=== PATIENT | female | born 1950 | race Hispanic/Latino ===

== ENCOUNTER 2017-10-21 08:59 | Day surgery (SDC) | payer MEDICARE ==
[2017-10-12 13:59] VITALS: BMI 32.5
[2017-10-21] MEDS ORDERED: Propofol 10 mg/ml Inj (20 ML) ONE ×2 (12:32→12:57)
[2017-10-21] MEDS ORDERED: Sodium Chloride 0.9% 1,000 ML IV SCH (14:00)
[2017-10-21 14:51] VITALS: BP 118/71; PULSE 72; RESP 16; TEMP 98; O2SAT 97
== END 2017-10-21 15:45 | disposition home or self-care (01) ==
LOC: ENDO 08:59
PROVIDERS: ATTEND Internal Medicine Gastroenterology
DX: K25.9 Gastric ulcer, unspecified as acute or chronic, without hemorrhage or perforation (principal); K44.9 Diaphragmatic hernia without obstruction or gangrene; K26.9 Duodenal ulcer, unspecified as acute or chronic, without hemorrhage or perforation; K31.7 Polyp of stomach and duodenum; D12.0 Benign neoplasm of cecum; K29.50 Unspecified chronic gastritis without bleeding; K57.30 Diverticulosis of large intestine without perforation or abscess without bleeding; K64.8 Other hemorrhoids; E11.9 Type 2 diabetes mellitus without complications; R13.10 Dysphagia, unspecified; R63.4 Abnormal weight loss; M54.12 Radiculopathy, cervical region; Z87.11 Personal history of peptic ulcer disease

== ENCOUNTER 2018-01-20 09:04 | Day surgery (SDC) | payer MEDICARE ==
[2012-11-16 09:53] VITALS: BMI 37.8
[2018-01-20 09:49] LABS: BASO # 0.01 K/mm3 (0.0-2.0); BASO % 0.1 % (0.0-3.0); EOS % 0.1 % (1.5-5.0); GRAN # 5.23 (1.4-6.5); GRAN % 76.8 % (50.0-68.0); HEMOGLOBIN 13.8 g/dL (12.0-16.0); LYMPH # 1.1 (1.2-3.4); LYMPH % 15.5 % (22.0-35.0); MEAN CELL VOLUME 83.5 fl (80.0-105.0); MEAN CORPUSCULAR HEMOGLOBIN 28.9 pg (25.0-35.0); MEAN CORPUSCULAR HGB CONC 34.6 g/dl (31.0-37.0); MEAN PLATELET VOLUME 9.2 fl (7.0-11.0); MONO # 0.5 (0.1-0.6); MONO % 7.5 % (1.0-6.0); RBC 4.78 10^6/uL (3.5-6.1); RED CELL DISTRIBUTION WIDTH 13.1 % (11.5-14.5); WHITE BLOOD COUNT 6.8 10^3/uL (4.5-11.0)
[2018-01-20 09:58] LABS: INR 1.01; PARTIAL THROMBOPLASTIN TIME 28.7 Seconds (25.1-36.5); PROTHROMBIN TIME 11.6 SECONDS (9.4-12.5)
[2018-01-20 10:00] LABS: ALB/GLOB RATIO 1.5 (1.1-1.8); ALBUMIN 4.2 g/dL (3.0-4.8); ALT/SGPT 39 U/L (7-56); AMYLASE 54 U/L (35-125); AST/SGOT 30 U/L (14-36); BLOOD UREA NITROGEN 20 mg/dL (7-21); CALCIUM 9.4 mg/dL (8.4-10.5); GAMMA GLUTAMYL TRANSPEPTIDASE 13 U/L (8-78); GFR NON-AFRICAN AMERICAN > 60; LIPASE 70 U/L (23-300)
[2018-01-20] MEDS ORDERED: Midazolam 2 MG/2 ML VIAL ONE (12:30)
[2018-01-20] MEDS ORDERED: Propofol 10 mg/ml Inj (20 ML) ONE (12:30)
[2018-01-20] MEDS ORDERED: Etomidate 20 mg/10ml Inj IV ONE (12:31)
[2018-01-20] MEDS ORDERED: Sodium Chloride 0.9% 1,000 ML IV SCH (14:00)
[2018-01-20 14:01] VITALS: RESP 18
[2018-01-20 14:42] VITALS: BP 126/74; PULSE 73; TEMP 98.3; O2SAT 95
== END 2018-01-20 15:35 | disposition home or self-care (01) ==
LOC: ENDO 09:04
PROVIDERS: ATTEND Internal Medicine Gastroenterology
DX: D13.1 Benign neoplasm of stomach (principal); K20.9 Esophagitis, unspecified; E78.00 Pure hypercholesterolemia, unspecified; E11.40 Type 2 diabetes mellitus with diabetic neuropathy, unspecified; K25.9 Gastric ulcer, unspecified as acute or chronic, without hemorrhage or perforation; K26.9 Duodenal ulcer, unspecified as acute or chronic, without hemorrhage or perforation; R63.4 Abnormal weight loss; Z86.010 Personal history of colon polyps; Z90.710 Acquired absence of both cervix and uterus; Z85.3 Personal history of malignant neoplasm of breast; Z92.3 Personal history of irradiation
CPT/HCPCS: 36415; 43239; 43259; 80053; 82150; 82977; 83690; 85025; 85610; 85730; 88305; 88312; 88342; J2001; J2250; J2704; J3010; J7030; J7040

== ENCOUNTER 2018-03-30 14:59 | Inpatient (IN) | payer MEDICARE ==
[2018-03-30 15:38] VITALS: BMI 28.1
[2018-03-30 16:04] LABS: BASO # 0.02 K/mm3 (0.0-2.0); BASO % 0.2 % (0.0-3.0); EOS % 0.4 % (1.5-5.0); GRAN # 6.21 (1.4-6.5); GRAN % 77.1 % (50.0-68.0); HEMOGLOBIN 13.9 g/dL (12.0-16.0); LYMPH # 1.4 (1.2-3.4); LYMPH % 16.7 % (22.0-35.0); MEAN CELL VOLUME 84.5 fl (80.0-105.0); MEAN CORPUSCULAR HEMOGLOBIN 28.4 pg (25.0-35.0); MEAN CORPUSCULAR HGB CONC 33.7 g/dl (31.0-37.0); MEAN PLATELET VOLUME 9.9 fl (7.0-11.0); MONO # 0.5 (0.1-0.6); MONO % 5.6 % (1.0-6.0); RBC 4.89 10^6/uL (3.5-6.1); RED CELL DISTRIBUTION WIDTH 13.5 % (11.5-14.5); WHITE BLOOD COUNT 8.1 10^3/uL (4.5-11.0)
--- NOTE | 2018-03-30 16:06 | ED PDOC ---
Arrival/HPI - General Chief Complaint: Shortness Of Breath Time Seen by Provider: 03/30/18 15:01 Historian: Patient - History of Present Illness Narrative History of Present Illness (Text): 03/30/18 15:45 67 F with PMHx of DM2, ?CIDP, spinal stenosis, spinal HNP sent to the Emergency department by PMD with cc of shortness of breath on exertion and weakness all over. Pt reports she went to see her PMD today, who wanted her to come into the Emergency department. Patient notes tightness of chest, ribs and around the back area. Patient states her weakness is so bad that she has trouble functioning. Pt states she saw her neurologist, who thinks it may be something more than CIPD. Pt denies any other complaints. PMD: Dr. Cortez Neurologist: Raymundo Youssef 03/30/18 16:10 Time/Duration: Prior to Arrival Symptom Onset: Sudden Symptom Course: Unchanged Activities at Onset: Light Past Medical History - Cardiac Hx Cardiac Disorders: No - Pulmonary Hx Respiratory Disorders: No - Neurological Hx Neurological Disorder: Yes (NEUROPATHY) Other/Comment: CHRONIC INFLAMMATORY DEMYELINATING POLYNEUROPATHY (CIDP) - HEENT Hx HEENT Disorder: No - Renal Hx Renal Disorder: No - Endocrine/Metabolic Hx Diabetes Mellitus Type 2: Yes - Hematological/Oncological Hx Cancer: Yes (RIGHT BREAST LUMPECTOMY, RADIATION) - Integumentary Hx Dermatological Disorder: No - Musculoskeletal/Rheumatological Hx Musculoskeletal Disorders: Yes (CARPAL TUNNEL) Other/Comment: BILATER TORN SHOULDER ROTATOR CUFFS, WITH SURGERY, AND RETORN. 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 - Gastrointestinal Hx Gastrointestinal Disorders: No - Genitourinary/Gynecological Hx Genitourinary Disorders: Yes Other/Comment: HYSTERCTOMY AND BILATERAL OOPHARECTOMY - Psychiatric Hx Psychophysiologic Disorder: No Hx Substance Use: No - Surgical History Hx Hysterectomy: Yes Hx Orthopedic Surgery: Yes Other/Comment: RIGHT BREAST LUMPECTOMY - Anesthesia Hx Anesthesia: Yes Hx Anesthesia Reactions: Yes (REINTUBATED) Hx Malignant Hyperthermia: No - Suicidal Assessment Feels Threatened In Home Enviroment: No Family/Social History Family/Social History: Unknown Family HX Smoking Status: Unknown If Ever Smoked Hx Alcohol Use: No Hx Substance Use: No Allergies/Home Meds Allergies/Adverse Reactions: Allergies No Known Allergies Allergy (Verified 03/30/18 15:38) Home Medications: Home Meds Medication Instructions Recorded Confirmed Aspirin [Aspir 81] 81 mg PO DAILY 11/16/12 03/07/18 Cholecalciferol [Vitamin D] 2,000 iu PO DAILY 11/16/12 03/07/18 MetFORMIN [glucoPHAGE] 1,000 mg PO DAILY 10/12/17 03/07/18 Pitavastatin Calcium [Livalo] 1 mg PO DAILY 10/12/17 03/07/18 Zonisamide [Zonegran] 300 mg PO HS 10/12/17 03/07/18 Omeprazole 40 mg PO DAILY 10/21/17 03/07/18 SITagliptin [Januvia] 100 mg PO DAILY 01/18/18 03/07/18 Zonisamide [Zonegran] 200 mg PO QAM 01/18/18 03/07/18 Levomefolate/B6/B12/Algal Oil 1 tab PO BID 01/20/18 03/07/18 [Metanx Capsule] Review of Systems - Physician Review All systems were reviewed & negative as marked: Yes (All other systems negative except that noted in the HPI.) Physical Exam - Physical Exam Narrative Physical Exam (Text): 03/30/18 16:10 Gen: VS reviewed, alert, well developed, well nourished, nontoxic, mild distress Eye: EOMI, PERRL Neck: no JVD, supple, no adenopathy CV: regular rate, regular rhythm, no rubs,no murmur, S1, S2 Pulm: no distress, clear to auscultation, no wheeze, no rhonchi, breath sounds equal, no rales Abd: soft, nontender, no guarding, no rebound, no rigidity Ext: no edema, there is atrophy noted of the left hand Skin: good color, no rash, no cyanosis Psych: responds appropriately to questions, normal affect Neuro: oriented x3, CN2-12 intact grossly, motor intact, sensation intact Medical Decision Making ED Course and Treatment: 03/30/18 15:45 Impression: 67 F sent to the Emergency department by PMD for shortness of breath on exertion and generalized weakness. Differential Diagnosis included but are not limited to: Plan: -- CT of angio chest -- EKG -- Labs -- Myoglobin, Urine -- Reassess and disposition Progress Notes: 03/30/18 18:[address] shafer. patient was sent to the Emergency department after being seen by dr. cortez for chest pain with request for admission. patient has diminished mobility and CTAPE was done to rule out PE. patient has been dealing with progressive generalized weakness, being seen by a neurologist dr. henry, was dx with CIDP, was noticed to not show improvement with therapy and was referred to surgeon for muscle biopsy. patient remained stable throughout Emergency department course, admit to remote tele and consult to dr. king. - RAD Interpretation Narrative RAD Interpretations (Text): CT of angio chest reviewed by radiologist, shows: Dictator : Dick Maurer MD Report Date : 03/30/2018 17:23:47 FINDINGS: PULMONARY ARTERIES: Dilated main pulmonary artery consistent with pulmonary arterial hypertension. AORTA: No acute findings. No thoracic aortic aneurysm. No atherosclerotic calcification or mural plaque present. LUNGS: Lower lobe infiltrates/dependent atelectasis affecting the left lower lobe to a greater extent in the right lower lobe. PLEURAL SPACES: Unremarkable. No effusion or pneumothorax. HEART: Unremarkable. No cardiomegaly. No significant pericardial effusion. LYMPH NODES: No lymphadenopathy. BONES, CHEST WALL: Unremarkable. No fracture or destructive lesion OTHER FINDINGS: Areas of esophageal thickening proximally and distally without annular or constricting lesion identified. IMPRESSION: Negative study for pulmonary embolism. Evidence of pulmonary arterial hypertension. Lower lobe infiltrates/atelectasis left greater than right. Focal areas of thickening proximal and distal esophagus suggestive, but not diagnostic of esophagitis. Radiology Orders: 03/30/18 15:50 ANGIO CHEST PE PROTOCOL [CT] Stat Ship Washer: Radiologist - EKG Interpretation EKG Interpretation (Text): 03/30/18 20:01 1536: nsr at 86 bpm, nml qrs, nml axis, inferior infarct, nonspecifct wave abn Interpreted by ED Physician: Yes - Scribe Statement The provider has reviewed the documentation as recorded by the Scribe Carolyn Santa All medical record entries made by the Scribe were at my direction and pe rsonally dictated by me. I have reviewed the chart and agree that the record accurately reflects my personal performance of the history, physical exam, medical decision making, and the department course for this patient. I have also personally directed, reviewed, and agree with the discharge instructions and disposition. Disposition/Present on Arrival - Present on Arrival Any Indicators Present on Arrival: No History of DVT/PE: No History of Uncontrolled Diabetes: No Urinary Catheter: No History of Decub. Ulcer: No History Surgical Site Infection Following: None - Disposition Have Diagnosis and Disposition been Completed?: Yes Diagnosis: Chest pain, Weakness Disposition: HOSPITALIZED Disposition Time: 18:38 Patient Plan: Admission Patient Problems: Current Active Problems Problem Status Onset Chest pain Acute Weakness Acute Condition: STABLE
[2018-03-30 16:14] LABS: PARTIAL THROMBOPLASTIN TIME 28.2 Seconds (25.1-36.5); PROTHROMBIN TIME 11.4 SECONDS (9.4-12.5)
[2018-03-30 16:18] LABS: ALB/GLOB RATIO 1.4 (1.1-1.8); ALBUMIN 4.2 g/dL (3.0-4.8); ALT/SGPT 44 U/L (7-56); AST/SGOT 35 U/L (14-36); BLOOD UREA NITROGEN 24 mg/dL (7-21); CALCIUM 9.4 mg/dL (8.4-10.5); GFR NON-AFRICAN AMERICAN > 60
[2018-03-30 16:27] LABS: B-TYPE NATRIURETIC PEPTIDE 261 pg/mL (0-450); TROPONIN I < 0.01 ng/mL
[2018-03-30] MEDS ORDERED: Iodixanol 320 MG/ML 100 ML BOTTLE IV ONE (16:36)
[2018-03-30 17:05] LABS: CK MB% 11.3 % (2.5-3.0)
--- NOTE | 2018-03-30 17:27 | CT ---
Date of service: 03/30/2018 PROCEDURE: CT Chest with contrast (Pulmonary Angiogram) HISTORY: Shortness of breath, pulmonary embolism suspected COMPARISON: 11/14/2017 CT thorax abdomen and pelvis TECHNIQUE: Axial computed tomography images were obtained of the chest in the pulmonary arterial phase of enhancement. Coronal and sagittal reformatted images were created and reviewed. Intravenous contrast dose: 100 cc Visipaque 320 Mean Hounsfield value in the main pulmonary artery: 236.66 Radiation dose: Total exam DLP = 436.95 mGy-cm. This CT exam was performed using one or more of the following dose reduction techniques: Automated exposure control, adjustment of the mA and/or kV according to patient size, and/or use of iterative reconstruction technique. FINDINGS: PULMONARY ARTERIES: Dilated main pulmonary artery consistent with pulmonary arterial hypertension. AORTA: No acute findings. No thoracic aortic aneurysm. No atherosclerotic calcification or mural plaque present. LUNGS: Lower lobe infiltrates/dependent atelectasis affecting the left lower lobe to a greater extent in the right lower lobe. PLEURAL SPACES: Unremarkable. No effusion or pneumothorax. HEART: Unremarkable. No cardiomegaly. No significant pericardial effusion. LYMPH NODES: No lymphadenopathy. BONES, CHEST WALL: Unremarkable. No fracture or destructive lesion OTHER FINDINGS: Areas of esophageal thickening proximally and distally without annular or constricting lesion identified. IMPRESSION: Negative study for pulmonary embolism. Evidence of pulmonary arterial hypertension. Lower lobe infiltrates/atelectasis left greater than right. Focal areas of thickening proximal and distal esophagus suggestive, but not diagnostic of esophagitis.
[2018-03-30] MEDS: Insulin Reg-LOW-Coverage SC SCH (22:38)
--- NOTE | 2018-03-31 09:55 | CARD ---
APPROVED REPORT Date of service: 03/30/2018 EKG Measurement Heart [id number] <Conclusion> Normal sinus rhythm Anterolateral infarct, age undetermined Abnormal ECG
--- NOTE | 2018-03-31 10:46 | CP.PCM.CON ---
History of Present Illness - History of Present Illness History of Present Illness: Marty Latham, PGY1 Surgery Consult Note for Dr. Beckwith Patient is a 67 y/o F with PMHx of DM II, HLD, spinal stenosis with multiple herniated discs, Breast cancer (with R-lumpectomy) who [place] [facility] [place] and generalized weakness. Patient has been seeing her neurologist for several years for her neurological complaints and was told that she may have Chronic Inflammatory Demyelinating Polyneuropathy, or CIDP. Patient has been receiving IV infusions of IVIG for the past month as per neurologist (Dr. Philippe). Surgery was consulted for muscle biopsy. Patient was seen and examined at bedside this morning. She is AAOx3. She states that her weakness has been going on for x1 year and has worsened in the last 3 months, with associated shortness of breath in the last 3 weeks. She endorsed 60 lb weight loss within the past year; this was confirmed by family members present at bedside. Patient has trouble sitting down in a chair and reaching for objects. She also has occasional numbness and tingling of the extremities. Denies fever, chills, nausea, vomiting, abdominal pain, cp. PMHx: DM II, HLD, spinal stenosis with multiple herniated discs, Breast cancer (with R-lumpectomy) PSHx: rotator cuff surgery (12 years ago), Hysterectomy w/ oophorectomy, bilateral carpal tunnel surgery (12 years ago), R-breast lumpectomy, cervical and lumbar herniated discs x10 Meds: see MAY Allergies: NKDA FamHx: non-contributory Review of Systems - Review of Systems All systems: reviewed and no additional remarkable complaints except (as per HPI) Past Patient History - Past Social History Smoking Status: Former Smoker - CARDIAC Hx Cardiac Disorders: No - PULMONARY Hx Respiratory Disorders: Yes Hx Chronic Obstructive Pulmonary Disease (COPD): Yes - NEUROLOGICAL Hx Neurological Disorder: No - HEENT Hx HEENT Problems: No - RENAL Hx Chronic Kidney Disease: No - ENDOCRINE/METABOLIC Hx Endocrine Disorders: Yes Hx Diabetes Mellitus Type 1: Yes - HEMATOLOGICAL/ONCOLOGICAL Hx Blood Disorders: Yes Hx Cancer: Yes (Rt breast Cancer) - INTEGUMENTARY Hx Dermatological Problems: No - MUSCULOSKELETAL/RHEUMATOLOGICAL Hx Musculoskeletal Disorders: Yes Hx Falls: Yes - GASTROINTESTINAL Hx Gastrointestinal Disorders: No - GENITOURINARY/GYNECOLOGICAL Hx Genitourinary Disorders: No - PSYCHIATRIC Hx Psychophysiologic Disorder: No - SURGICAL HISTORY Hx Surgeries: Yes Hx Hysterectomy: Yes Other/Comment: lumpectomy - ANESTHESIA Hx Anesthesia: Yes Hx Anesthesia Reactions: Yes (REINTUBATED) Hx Malignant Hyperthermia: No Meds Allergies/Adverse Reactions: Allergies Allergy/AdvReac Type Severity Reaction Status Date / Time No Known Allergies Allergy Verified 03/30/18 15:38 - Medications Medications: Current Medications Aspirin (Ecotrin) 81 mg PO DAILY [facility] Atorvastatin Calcium (Lipitor) 40 mg PO DIN MAR Insulin Human Regular (Humulin R Low) 0 units SC ACHS [facility]; Protocol Last Admin: 03/30/18 22:38 Dose: Not Given Sitagliptin Phosphate (Januvia) 100 mg PO DAILY [facility] Physical Exam - Head Exam Head Exam: NORMAL INSPECTION - Eye Exam Eye Exam: EOMI, Normal appearance, PERRL - ENT Exam ENT Exam: Mucous Membranes Moist - Respiratory Exam Respiratory Exam: Clear to Auscultation Bilateral. absent: Rales, Rhonchi, Wheezes - Cardiovascular Exam Cardiovascular Exam: RRR, +S1, +S2 - GI/Abdominal Exam GI & Abdominal Exam: Normal Bowel Sounds, Soft. absent: Distended, Firm, Guarding, Rebound, Rigid - Extremities Exam Extremities exam: Positive for: pedal pulses present. Negative for: calf tenderness, full ROM Additional comments: Proximal muscle weakness of the upper and lower extremities. LUE weakness is greater than RUE. Sensation is intact in all extremities. Distal pulses are palpable in all extremities. Limited ROM in the extremities. No abnormal skin changes noted on exam. - Neurological Exam Neurological exam: Alert, CN II-XII Intact, Oriented x3 - Psychiatric Exam Psychiatric exam: Normal Affect, Normal Mood - Skin Skin Exam: Dry, Intact, Normal Color, Warm Results - Vital Signs Recent Vital Signs: Last Vital Signs Temp 97.5 F L 03/31/18 06:00 Pulse 74 03/31/18 06:00 Resp 18 03/31/18 06:00 BP 124/80 03/31/18 06:00 Pulse Ox 99 03/31/18 06:00 - Labs Result Diagrams: 03/30/18 15:50 03/30/18 15:50 Labs: Laboratory Results - last 24 hr 03/30/18 03/30/18 03/30/18 15:50 15:50 15:50 WBC 8.1 RBC 4.89 Hgb 13.9 Hct 41.3 MCV 84.5 MCH 28.4 MCHC 33.7 RDW 13.5 Plt Count 249 MPV 9.9 Gran % 77.1 H Lymph % (Auto) 16.7 L Wells % (Auto) 5.6 Eos % (Auto) 0.4 L Baso % (Auto) 0.2 Gran # 6.21 Lymph # (Auto) 1.4 Wells # (Auto) 0.5 Eos # (Auto) 0.0 Baso # (Auto) 0.02 PT 11.4 INR 1.00 APTT 28.2 Sodium 138 Potassium 4.2 Chloride 105 Carbon Dioxide 27 Anion Gap 10 BUN 24 H Creatinine 0.7 Est GFR ( Amer) > 60 Est GFR (Non-Af Amer) > 60 POC Glucose (mg/dL) Random Glucose 118 H Calcium 9.4 Magnesium 1.6 L Total Bilirubin 0.3 AST 35 ALT 44 Alkaline Phosphatase 82 Total Creatine Kinase 231 H CK-MB (CK-2) 26.0 H CK-MB (CK-2) % 11.3 H Troponin I < 0.01 NT-Pro-B Natriuret Pep 261 Total Protein 7.2 Albumin 4.2 Globulin 3.0 Albumin/Globulin Ratio 1.4 Lipase TSH 3rd Generation 03/30/18 03/30/18 03/30/18 15:50 16:30 22:01 WBC RBC Hgb Hct MCV MCH MCHC RDW Plt Count MPV Gran % Lymph % (Auto) Wells % (Auto) Eos % (Auto) Baso % (Auto) Gran # Lymph # (Auto) Wells # (Auto) Eos # (Auto) Baso # (Auto) PT INR APTT Sodium Potassium Chloride Carbon Dioxide Anion Gap BUN Creatinine Est GFR ( Amer) Est GFR (Non-Af Amer) POC Glucose (mg/dL) 163 H Random Glucose Calcium Magnesium Total Bilirubin AST ALT Alkaline Phosphatase Total Creatine Kinase CK-MB (CK-2) CK-MB (CK-2) % Troponin I NT-Pro-B Natriuret Pep Total Protein Albumin Globulin Albumin/Globulin Ratio Lipase 76 TSH 3rd Generation 1.69 03/31/18 03/31/18 06:00 07:33 WBC RBC Hgb Hct MCV MCH MCHC RDW Plt Count MPV Gran % Lymph % (Auto) Wells % (Auto) Eos % (Auto) Baso % (Auto) Gran # Lymph # (Auto) Wells # (Auto) Eos # (Auto) Baso # (Auto) PT INR APTT Sodium Potassium Chloride Carbon Dioxide Anion Gap BUN Creatinine Est GFR ( Amer) Est GFR (Non-Af Amer) POC Glucose (mg/dL) 135 H Random Glucose Calcium Magnesium Total Bilirubin AST ALT Alkaline Phosphatase Total Creatine Kinase CK-MB (CK-2) CK-MB (CK-2) % Troponin I < 0.01 NT-Pro-B Natriuret Pep Total Protein Albumin Globulin Albumin/Globulin Ratio Lipase TSH 3rd Generation Assessment & Plan - Assessment and Plan (Free Text) Assessment: Patient is a 67 y/o F with possible Chronic Inflammatory Demyelinating Polyneuropathy requiring muscle biopsy Plan: - Will schedule for muscle biopsy on Tuesday, 04/03, with Dr. Davis - No surgical intervention at this time - Continue with further recommendations as per primary team Case was discussed and reviewed with Dr. Beckwith, who is covering for Dr. Davis
[2018-03-31] MEDS: Insulin Reg-LOW-Coverage SC SCH ×3 (11:10→23:23)
[2018-03-31 12:02] LABS: COMPLEMENT C4 36.4 mg/dL (14.0-44.0)
--- NOTE | 2018-03-31 12:09 | HP ---
DATE OF EXAM: 03/31/2018 HISTORY OF PRESENT ILLNESS: This is a 67-year-old female who is coming into the hospital complaining of chest discomfort. She says that she has been having chest pain at times right below where her bra straps are. She says that she does get shortness of breath. She feels weak and has difficulty in ambulating. She has a history of spinal stenosis and neuropathy in the legs bilaterally. The patent has been seeing a neurologist. She was started on IVIG and she says it has not helped. She has a diagnosis of chronic inflammatory demyelinating polyneuropathy. The patient denies any fevers, chills, no nausea, no vomiting, no swelling in the joints of the shoulders or the hands. She has no rashes. She has difficulty in lifting her arms above her shoulders. She has seen multiple hand surgeons because she has difficulty with holding onto objects because of her carpal tunnel. She has had rotator cuff surgery. The patient has dysuria, frequency. No diplopia. All other review of systems are within limits except as mentioned, she was not able to do go upstairs, although she was able to go down the stairs. She says she was perfectly healthy one year ago and since then has declined significantly. ALLERGIES: No known drug allergies. PAST MEDICAL HISTORY: Diabetes type 2, right breast cancer, chronic inflammatory demyelinating polyneuropathy, and dyslipidemia. FAMILY HISTORY: Noncontributory. SOCIAL HISTORY: She says she stopped smoking about 12 years ago. She denies alcohol abuse or drugs. PAST SURGICAL HISTORY: 1. Hysterectomy and bilateral oophorectomy. 2. Right breast lumpectomy. 3. Bilateral rotator cuff surgeries. MEDICATIONS: Aspirin, vitamin D, Glucophage, pitavastatin, Zonegran, omeprazole, Januvia. LABORATORY DATA: White count 8.1, hemoglobin 13.9. Chemistry shows sodium 138, potassium is 4.2, creatinine is 0.7, magnesium is 1.6, CK is 231, troponin is 0.01, albumin is 4.2. CT of the chest done is negative for PE. There is left lower lobe atelectasis. ASSESSMENT: 1. Chest pain. 2. Diabetes type 2. 3. Dyslipidemia. 4. Chronic inflammatory demyelinating polyneuropathy. 5. Gait dysfunction. 6. Chronic back pain. PLAN: The patient is currently admitted to the hospital because of chest pain. She had troponins that were negative. She will need to see Cardiology. I did speak with Dr Camacho. The patient is currently comfortable and does not have any chest pain. The patient will most likely need a stress test because of history of diabetes and smoking. The patient also complains of shortness of breath. The patient had urine myoglobin that has been ordered as well as DONA. She also is going to continue with Januvia. I will place her on insulin sliding scale. She will be placed on Lipitor because her statin is not formulated in the hospital. I will get Neuro and Surgery to evaluate the patient. Dr Philippe is the patient's neurologist and he had referred the patient to Dr Davis for muscle biopsy. The patient has a history of chronic inflammatory demyelinating polyneuropathy. This is an acquired immune mediated inflammatory disorder of the peripheral nervous system. She has had two treatments of IVIG and this has not helped her symptoms. I am not sure if she would benefit from prednisone or plasmapheresis. I will get Neurology to evaluate further. The patient will most likely need an echo. I did speak to the patient's daughter at the bedside. The patient will most likely need subacute rehab. She is going to be placed on a heart healthy diet. Khurram Sharma MD
--- NOTE | 2018-03-31 15:31 | CARD ---
APPROVED REPORT Date of service: 03/31/2018 EXAM: Two-dimensional and M-mode echocardiogram with Doppler and color Doppler. INDICATION Chest Pain 2D DIMENSIONS Left Atrium (2D)3.8 (1.6-4.0cm)IVSd1.2 (0.7-1.1cm) LVDd4.2 (3.9-5.9cm)PWd1.1 (0.7-1.1cm) LVDs2.8 (2.5-4.0cm)FS (%) 33.0 % LVEF (%)61.9 (>50%) M-Mode DIMENSIONS Aortic Root2.90 (2.2-3.7cm)Aortic Cusp Exc.1.60 (1.5-2.0cm) Aortic Valve AoV Peak Vizeaqzl032.0cm/Giovany Peak GR.7mmHg Mitral Valve MV E Trnborew49.0cm/sMV A Yrtuecli55.8cm/sE/A ratio0.8 TDI E/Lateral E'0.0E/Medial E'0.0 Tricuspid Valve TR Peak Yiaccnag698is/sRAP [id number] Peak Gr.8mmHg [id number] LEFT VENTRICLE The left ventricle is normal size. There is mild concentric left ventricular hypertrophy. The left ventricular function is normal. The left ventricular ejection fraction is within the normal range. There is normal LV segmental wall motion. RIGHT VENTRICLE The right ventricle is normal size. The right ventricular systolic function is normal. ATRIA The left atrium size is normal. The right atrium size is normal. The interatrial septum is intact with no evidence for an atrial septal defect. AORTIC VALVE The aortic valve is normal in structure. No aortic regurgitation is present. There is no aortic valvular stenosis. MITRAL VALVE The mitral valve is normal in structure. There is no mitral valve regurgitation noted. TRICUSPID VALVE The tricuspid valve is normal in structure. There is trace tricuspid regurgitation. PULMONIC VALVE The pulmonary valve is normal in structure. GREAT VESSELS The aortic root is normal in size. The IVC is normal in size and collapses >50% with inspiration. PERICARDIAL EFFUSION There is no pleural effusion. There is no pericardial effusion. <Conclusion> Normal chamber size. Mild concentric LVH. No valvular abnormalities seen. Normal LV systolic function.
--- NOTE | 2018-03-31 16:17 | CON ---
DATE: 03/30/2018 HISTORY OF PRESENT ILLNESS: This is a 67-year-old white female with a past medical history of diabetes, CIDP, dyslipidemia, and right breast cancer and has been came to the hospital with the complain of chest discomfort, also complain of difficulty breathing and feels very weak, difficulty in ambulating, walking with a walker. The patient was given two rounds of IVIG by Dr. Philippe, and still complaining very weak, also had bilateral carpal tunnel syndrome and neuropathy and difficulty in doing daily activities of living and son is at bedside, called to evaluate the patient. PAST MEDICAL HISTORY: Diabetes, CIDP, and dyslipidemia. ALLERGIES: NO KNOWN DRUG ALLERGIES. SOCIAL HISTORY: Stopped smoking 12 years ago. PAST SURGICAL HISTORY: Status post hysterectomy, oophorectomy, right breast lumpectomy and bilateral rotator cuff surgeries. MEDICATIONS: Aspirin, vitamin D, Glucophage, and Zonegran for neuropathy. PHYSICAL EXAMINATION HEENT: Normocephalic and atraumatic. NECK: Supple. NEUROLOGIC: Awake, oriented to self and place. Cranial nerves II through XII are tested. Pupil reactive. EOM intact. Visual field full. No facial asymmetry. Tongue midline. Motor: Spontaneous movement of all the extremities noted, but weaker in the legs more than the arms. Deep tendon reflexes are absent. Cerebellar gait was deferred. IMPRESSION: A 67-year-old white female with a past medical history of chronic inflammatory demyelinating polyneuropathy and diabetes and right breast cancer and came to hospital with the chest pain, difficulty breathing and multiple medical problems like diabetes, colonic inflammatory demyelinating polyneuropathy, gait dysfunction, chronic back pain and workup is in progress and I agree with muscle biopsy, Dr. Davis will do to make sure for the history of chronic inflammatory demyelinating polyneuropathy. Continue present management and physical therapy. We will followup. Isaiah Astudillo MD
--- NOTE | 2018-04-01 03:01 | CON ---
DATE: 03/31/2018 REQUESTING PHYSICIAN: Dr. Sharma. REASON FOR CONSULTATION: Chest pain and dyspnea. HISTORY OF PRESENT ILLNESS: This is a 67-year-old woman with a history of diabetes and hyperlipidemia who has had progressive weakness over the past year or so. She has been seen by Dr. Philippe and was suspected of having a chronic inflammatory demyelinating polyneuropathy. Recently, she has had worsening exertional dyspnea as well as a band-like sensation across her chest. She has been treated with intravenous immunoglobulin without significant improvement in her symptoms. She had worsening symptoms and presents to the emergency room for evaluation. She is seen sitting in a chair on telemetry. She finds it difficult to talk in long sentences as she becomes dyspneic. PAST HISTORY: Notable for the problems mentioned above. She also has undergone a right lumpectomy for breast cancer a number of years ago. She is status post hysterectomy as well as left oophorectomy and has undergone bilateral rotator cuff surgeries as well as carpal tunnel surgery. MEDICATIONS: Her medications at home include aspirin, Glucophage, Zonegran, Lipitor, Neurontin. ALLERGIES: NONE. SOCIAL HISTORY: She was a smoker, but quit over 10 years ago. She denies alcohol use. She is , lives with her family. FAMILY HISTORY: Unremarkable for premature heart disease. REVIEW OF SYSTEMS: A 10-point review of systems is notable mainly for problems mentioned above. PHYSICAL EXAMINATION: GENERAL: She is an anxious-appearing middle-aged woman. VITAL SIGNS: Her blood pressure was 124/80 with a pulse of 90, in sinus; respirations are 16; and she is afebrile. HEENT: Normocephalic, atraumatic. NECK: Supple, however, she appears to have some neck muscle weakness. CHEST: Clear to auscultation and percussion. HEART: PMI in normal position. No pathologic murmurs or gallops are noted. ABDOMEN: Soft, mildly obese, nontender. Normoactive bowel sounds. EXTREMITIES: No edema. SKIN: Warm and dry. PSYCHIATRIC: Mild anxiety, but otherwise normal mood and affect. NEUROLOGIC: Significant lower extremity weakness is noted. IMPRESSION: 1. Dyspnea, doubt cardiac cause, suspicious for possible diaphragmatic weakness associated with her generalized motor weakness. 2. Chest discomfort, also appears more likely neurologic rather than cardiac in nature. 3. Significant cardiac risk factors given history of diabetes, hyperlipidemia, and remote tobacco abuse. 4. Rest of problems as noted. RECOMMENDATIONS: Continued neurologic workup is advisable. A muscle biopsy may be helpful. An echocardiogram will be obtained to assess her left ventricular size and function. She states she had a stress test several years ago. Given her risk factors, it would not be unreasonable to repeat a pharmacologic nuclear stress test, however, her symptoms do not appear to be cardiac in nature at this time. We will continue to follow and make further recommendations as appropriate. Thank you for this consultation. Alexis Camacho MD
[2018-04-01] MEDS: Insulin Reg-LOW-Coverage SC SCH ×4 (07:30→22:15)
--- NOTE | 2018-04-01 08:53 | CP.PCM.PN ---
Subjective - Date & Time of Evaluation Date of Evaluation: 04/01/18 Time of Evaluation: 08:49 - Subjective Subjective: Surgery Progress note for Dr. Beckwith (covering for Dr. Ortega) pt seen and examined at bedside. No new complaints at this time. tolerating current diet. + OOB and ambulating. Denies fevers, chills, chest pain, shortness of breath. Objective - Vital Signs/Intake and Output Vital Signs (last 24 hours): Temp Pulse Resp BP Pulse Ox 98.5 F 119 H 19 129/86 99 03/31/18 18:00 04/01/18 05:22 03/31/18 18:00 03/31/18 18:00 03/31/18 06:00 Intake and Output: 04/01/18 04/01/18 06:59 18:59 Intake Total 480 Balance 480 - Medications Medications: Current Medications Aspirin (Ecotrin) 81 mg PO DAILY [facility] Last Admin: 03/31/18 11:10 Dose: 81 mg Atorvastatin Calcium (Lipitor) 40 mg PO DIN [facility] Last Admin: 03/31/18 17:56 Dose: 40 mg Gabapentin (Neurontin) 300 mg PO BID [facility]; Protocol Last Admin: 03/31/18 17:56 Dose: 300 mg Insulin Human Regular (Humulin R Low) 0 units SC ACHS [facility]; Protocol Last Admin: 03/31/18 23:23 Dose: Not Given Sitagliptin Phosphate (Januvia) 100 mg PO DAILY [facility] Last Admin: 03/31/18 11:10 Dose: 100 mg - Labs Labs: 03/30/18 15:50 03/30/18 15:50 PT 11.4 SECONDS (9.4-12.5) 03/30/18 15:50 INR 1.00 03/30/18 15:50 APTT 28.2 Seconds (25.1-36.5) 03/30/18 15:50 - Constitutional Appears: Non-toxic, No Acute Distress - Head Exam Head Exam: ATRAUMATIC - Eye Exam Eye Exam: EOMI. absent: Scleral icterus - ENT Exam ENT Exam: Mucous Membranes Moist - Respiratory Exam Respiratory Exam: absent: Accessory Muscle Use, Respiratory Distress - Cardiovascular Exam Cardiovascular Exam: REGULAR RHYTHM. absent: Bradycardia, Tachycardia - GI/Abdominal Exam GI & Abdominal Exam: Soft. absent: Distended, Firm, Guarding, Rigid, Tenderness - Extremities Exam Additional comments: continues to have weakness in upper and lower extremities - Neurological Exam Neurological Exam: Alert, Awake, Oriented x3 - Psychiatric Exam Psychiatric exam: Normal Affect - Skin Skin Exam: Intact, Warm Assessment and Plan - Assessment and Plan (Free Text) Assessment: 67F w/ extensive pmhx admitted for muscle biopsy to r/o CIPD Plan: - plan for biopsy on tuesday - NPO after MN on Tuesday - Encourage OOB and ambulation - continued medical management per primary team - further recs per Dr. Tang Villa PGY2
--- NOTE | 2018-04-01 18:24 | PN ---
DATE: 04/01/2018 SUBJECTIVE: The patient is seen sitting in a chair on telemetry. She continues to have generalized muscle weakness. She continues to have some dyspnea which appears associated with increased work of respiratory movement excursion. She denies any chest pain. She has had intermittent sinus tachycardia with exertion. MEDICATIONS: Her current medications include Ecotrin, insulin, Januvia, Lipitor and Neurontin. OBJECTIVE GENERAL: She is a middle-aged woman who appears anxious. VITAL SIGNS: Her blood pressure is 130/86 with a pulse of 80-120 and sinus, respirations are 16. She is afebrile. HEENT: No JVD. CHEST: Few scattered rhonchi. HEART: PMI in normal position. No pathological murmurs or gallops noted. ABDOMEN: Soft and nontender. Normoactive bowel sounds. EXTREMITIES: No edema. DIAGNOSTIC DATA: Her echocardiogram reveals mild concentric LVH with normal LV size and systolic function, no significant valvular abnormalities. IMPRESSION: 1. Dyspnea. Suspect this is due to respiratory muscle weakness associated with generalized muscle weakness. Doubt cardiac cause. 2. History of diabetes. RECOMMENDATIONS: From a cardiac standpoint, she is stable to proceed with a muscle biopsy as scheduled for Tuesday. At this time, cardiac stress testing will be deferred as her symptoms are not likely ischemic in nature and I do not feel that stress testing is appropriate at this time. She can be reevaluated for this at a later date. We will follow as needed. Alexis Camacho MD
--- NOTE | 2018-04-01 23:09 | PN ---
DATE: 04/01/2018 SUBJECTIVE: The patient is 67 years old who is under the care of Dr. Philippe. States she went to see Dr. Philippe. She states she was recently started on IVIG infusion when she mentioned to Dr. Philippe that recently she has been having pressure like chest pain, though he referred her to see Dr. Cortez who seems to be primary care physician. He did EKG in the office and found some changes, so he referred her to emergency room for evaluation of coronary artery disease. The patient was evaluated by Dr. Alexis Camacho. Echocardiogram was ordered that shows normal LV function, mild concentric LVH, but systolic function is within normal limits. The patient was also evaluated by the neurologist. 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 There was no plan for stress test; however, she is going for muscle biopsy on Tuesday. PHYSICAL EXAMINATION: GENERAL: Complaint of extreme weakness, shortness of breath. She cannot catch her breath if she walks to the bathroom. VITAL SIGNS: She is afebrile, pulse 88, respirations 20, and blood pressure 116/73. LUNGS: Bilateral fair airflow. No rhonchi or crackle. HEART: S1 and S2 audible. ABDOMEN: Soft, nontender. No rebound. No guarding. NEUROLOGICAL: The patient is awake, alert, oriented. Able to communicate, but has extreme weakness, bilateral upper and lower extremity decreased strength. LABORATORY DATA: Blood sugar is running high. DONA screen is negative. Complement level is okay, is in normal range. ASSESSMENT: 1. History of chronic inflammatory demyelinating disease. 2. Generalized weakness. 3. Noncardiac chest pain. 4. History of carcinoma of breast. 5. Non-insulin dependent diabetes. PLAN: The patient's Sjgren's disease profile, myoglobin, urine test and aldolase levels are pending. The patient is scheduled for muscle biopsy on Tuesday. Currently, she is on Januvia. She is getting gabapentin. She is scheduled for stress test on Tuesday and after stress test and muscle biopsy, arrangement is to send her to [facility] for further therapy. Percy Dent MD [facility] # [id number]
[2018-04-02] MEDS: Fluticasone Nasal 50 mcg/Spray NS SCH ×2 (00:55→09:22)
[2018-04-02] MEDS: Insulin Reg-LOW-Coverage SC SCH ×3 (08:14→17:30)
--- NOTE | 2018-04-02 11:48 | CP.PCM.PN ---
Subjective - Date & Time of Evaluation Date of Evaluation: 04/02/18 Time of Evaluation: 11:46 - Subjective Subjective: Surgery: Dr. Beckwith Pt seen and examined. No acute events overnight. Pt states that she feels weak. Otherwise no complaints. Objective - Vital Signs/Intake and Output Vital Signs (last 24 hours): Temp Pulse Resp BP Pulse Ox 97.6 F 89 19 114/75 93 L 04/02/18 05:54 04/02/18 05:54 04/02/18 05:54 04/02/18 05:54 04/02/18 05:54 Intake and Output: 04/02/18 04/02/18 06:59 18:59 Intake Total 240 Balance 240 - Medications Medications: Current Medications Aspirin (Ecotrin) 81 mg PO DAILY [facility] Last Admin: 04/02/18 09:22 Dose: 81 mg Atorvastatin Calcium (Lipitor) 40 mg PO DIN [facility] Last Admin: 04/01/18 17:58 Dose: 40 mg Fluticasone Propionate (Flonase) 1 actuation NS DAILY [facility] Last Admin: 04/02/18 09:22 Dose: 1 spr Gabapentin (Neurontin) 300 mg PO BID [facility]; Protocol Last Admin: 04/02/18 09:23 Dose: Not Given Insulin Human Regular (Humulin R Low) 0 units SC [facility]; Protocol Last Admin: 04/02/18 11:42 Dose: Not Given Sitagliptin Phosphate (Januvia) 100 mg PO DAILY [facility] Last Admin: 04/02/18 09:22 Dose: 100 mg - Labs Labs: 03/30/18 15:50 03/30/18 15:50 PT 11.4 SECONDS (9.4-12.5) 03/30/18 15:50 INR 1.00 03/30/18 15:50 APTT 28.2 Seconds (25.1-36.5) 03/30/18 15:50 - Constitutional Appears: Non-toxic, No Acute Distress - Head Exam Head Exam: ATRAUMATIC, NORMOCEPHALIC - Eye Exam Eye Exam: EOMI - ENT Exam ENT Exam: Mucous Membranes Moist - Neck Exam Neck Exam: Full ROM - Respiratory Exam Respiratory Exam: NORMAL BREATHING PATTERN. absent: Accessory Muscle Use, Re spiratory Distress - GI/Abdominal Exam GI & Abdominal Exam: Soft. absent: Tenderness - Extremities Exam Extremities Exam: absent: Calf Tenderness, Pedal Edema - Neurological Exam Neurological Exam: Alert, Awake, Oriented x3 Assessment and Plan - Assessment and Plan (Free Text) Assessment: 67F r/o CIPD -Will plan for muscle Bx on Tuesday -will continue to follow -d/w attending Zeerynitis [id number]
[2018-04-02] MEDS: ZONISAMIDE 100 MG PO SCH (21:41)
[2018-04-03 07:06] LABS: BASO # 0.01 K/mm3 (0.0-2.0); BASO % 0.1 % (0.0-3.0); EOS # 0.1 (0.0-0.7); GRAN # 5.06 (1.4-6.5); GRAN % 69.4 % (50.0-68.0); HEMOGLOBIN 13.3 g/dL (12.0-16.0); LYMPH # 1.7 (1.2-3.4); LYMPH % 22.7 % (22.0-35.0); MEAN CELL VOLUME 83.8 fl (80.0-105.0); MEAN CORPUSCULAR HEMOGLOBIN 27.7 pg (25.0-35.0); MONO # 0.5 (0.1-0.6); MONO % 6.8 % (1.0-6.0); RBC 4.81 10^6/uL (3.5-6.1); RED CELL DISTRIBUTION WIDTH 13.4 % (11.5-14.5); WHITE BLOOD COUNT 7.3 10^3/uL (4.5-11.0)
[2018-04-03 07:09] LABS: INR 0.99; PARTIAL THROMBOPLASTIN TIME 28.4 Seconds (25.1-36.5); PROTHROMBIN TIME 11.4 SECONDS (9.4-12.5)
--- NOTE | 2018-04-03 07:54 | CP.PCM.PN ---
Subjective - Date & Time of Evaluation Date of Evaluation: 04/03/18 Time of Evaluation: 07:51 - Subjective Subjective: Surgery Progress note- Dr. Beckwith (covering for Dr. Davis) Patient seen and examined at bedside. No new complaints. tolerating current diet. +OOB using walker. denies n/v/f/c. Plan for OR tomorrow Objective - Vital Signs/Intake and Output Vital Signs (last 24 hours): Temp Pulse Resp BP Pulse Ox 97.8 F 79 19 130/83 96 04/03/18 06:04 04/03/18 06:04 04/03/18 06:04 04/03/18 06:04 04/03/18 06:04 Intake and Output: 04/03/18 04/03/18 06:59 18:59 Intake Total 180 Output Total 0 Balance 180 - Medications Medications: Current Medications Aspirin (Ecotrin) 81 mg PO DAILY [facility] Last Admin: 04/02/18 09:22 Dose: 81 mg Atorvastatin Calcium (Lipitor) 40 mg PO DIN [facility] Last Admin: 04/02/18 17:34 Dose: 40 mg Fluticasone Propionate (Flonase) 1 actuation NS DAILY [facility] Last Admin: 04/02/18 09:22 Dose: 1 spr Home Med (Home Med) 2 unit PO QAM MAR Home Med (Home Med) 3 unit PO HS [facility] Last Admin: 04/02/18 21:41 Dose: 3 unit Insulin Human Regular (Humulin R Low) 0 units SC ACHS [facility]; Protocol Last Admin: 04/02/18 17:30 Dose: Not Given Metformin HCl (Glucophage) 500 mg PO BID [facility] Last Admin: 04/02/18 17:30 Dose: Not Given Sitagliptin Phosphate (Januvia) 100 mg PO DAILY [facility] Last Admin: 04/02/18 09:22 Dose: 100 mg - Labs Labs: 04/03/18 06:30 03/30/18 15:50 PT 11.4 SECONDS (9.4-12.5) 04/03/18 06:30 INR 0.99 04/03/18 06:30 APTT 28.4 Seconds (25.1-36.5) 04/03/18 06:30 - Constitutional Appears: Non-toxic, No Acute Distress, Chronically Ill - Head Exam Head Exam: ATRAUMATIC - Eye Exam Eye Exam: EOMI. absent: Scleral icterus - ENT Exam ENT Exam: Mucous Membranes Moist - Respiratory Exam Respiratory Exam: NORMAL BREATHING PATTERN. absent: Accessory Muscle Use, Respiratory Distress - Cardiovascular Exam Cardiovascular Exam: REGULAR RHYTHM. absent: Bradycardia, Tachycardia - GI/Abdominal Exam GI & Abdominal Exam: Soft. absent: Distended, Firm, Guarding, Rigid, Tenderness - Extremities Exam Extremities Exam: Normal Inspection. absent: Calf Tenderness - Neurological Exam Neurological Exam: Alert, Awake, Oriented x3 - Psychiatric Exam Psychiatric exam: Normal Affect - Skin Skin Exam: Intact, Warm Assessment and Plan - Assessment and Plan (Free Text) Assessment: 67F r/o CIPD Plan: - Plan for OR tomorrow- muscle biopsy - NPO @ MN - encourage OOB and ambulation - continued medical management per Primary team - further recs per Dr. Beckwith covering for Dr. Susan Villa PGY2
[2018-04-03 08:03] LABS: ALB/GLOB RATIO 1.4 (1.1-1.8); ALBUMIN 4.2 g/dL (3.0-4.8); ALT/SGPT 40 U/L (7-56); AST/SGOT 31 U/L (14-36); BLOOD UREA NITROGEN 20 mg/dL (7-21); CALCIUM 9.2 mg/dL (8.4-10.5); GFR NON-AFRICAN AMERICAN > 60
[2018-04-03] MEDS: Insulin Reg-LOW-Coverage SC SCH ×4 (08:03→22:30)
[2018-04-03] MEDS ORDERED: Potassium Chloride 40 mEq/30 ml LIQ UD PO ONE (09:25)
[2018-04-03] MEDS: Fluticasone Nasal 50 mcg/Spray NS SCH (09:27)
[2018-04-03] MEDS: Cholecalciferol 1,000 INTLU TAB PO SCH (09:27)
[2018-04-03] MEDS: ZONISAMIDE 100 MG PO SCH ×2 (09:28→21:19)
--- NOTE | 2018-04-03 09:50 | PN ---
DATE: 04/02/2018 SUBJECTIVE: The patient is 67-year-old, seen and examined, complaining of generalized weakness, complaining of heavy cramps since she got Neurontin, so want that to be discontinued. The patient states she has experienced of having leg cramps the patient was given Neurontin in the past. She takes Zonegran at home and want that to be given while she is in hospital. Otherwise, on examination complained of generalized weakness, shortness of breath especially on exertion. PHYSICAL EXAMINATION: VITAL SIGNS: She is afebrile. Pulse 99, respiration 20 and blood pressure 141/60. LUNGS: Bilateral fair airflow. No rhonchi or crackle. HEART: S1 and S2, audible. ABDOMEN: Soft and nontender. No rebound. No guarding. NEUROLOGICAL: She is awake, alert, oriented and able to communicate. Has generalized weakness, has tremor. LABORATORY DATA: Blood sugar is 210. ASSESSMENT: 1. Generalized weakness. 2. Chronic inflammatory demyelinating polyneuropathy. 3. Diabetic neuropathy. 4. Non-insulin dependant diabetes. 5. Exertional dyspnea, because of neurological disorder. PLAN: We will discontinue gabapentin, start her on Zonegran. Followup her blood work that has been ordered earlier autoimmune diseases. Monitor her blood sugar. We will restart her on metformin, that the patient states she was taking at home. The patient is scheduled to have muscle biopsy in a.m. After that plan will be made for subacute rehab. Percy Dent MD
--- NOTE | 2018-04-03 10:47 | CP.PCM.CON ---
History of Present Illness - History of Present Illness History of Present Illness: Podiatry consult note for Dr. Juan, Patient is a 67 y/o F with PMHx of DM II, HLD, spinal stenosis with multiple herniated discs, Breast cancer (with R-lumpectomy). Patient complains of calluses that have been present for a very long time. Patient states she sees Dr. Juan regularly every 2 months for the calluses. Patient states the calluses cause mild pain to her feet. Patient denies any open wounds to her foot and leg. Denies any other complains. Denies f/n/v/sob. PMHx: DM II, HLD, spinal stenosis with multiple herniated discs, Breast cancer (with R-lumpectomy) PSHx: rotator cuff surgery (12 years ago), Hysterectomy w/ oophorectomy, bilateral carpal tunnel surgery (12 years ago), R-breast lumpectomy, cervical and lumbar herniated discs x10 Meds: see [facility] Allergies: NKDA FamHx: non-contributory Past Patient History - Past Social History Smoking Status: Former Smoker - CARDIAC Hx Cardiac Disorders: No - PULMONARY Hx Respiratory Disorders: Yes Hx Chronic Obstructive Pulmonary Disease (COPD): Yes - NEUROLOGICAL Hx Neurological Disorder: No - HEENT Hx HEENT Problems: No - RENAL Hx Chronic Kidney Disease: No - ENDOCRINE/METABOLIC Hx Diabetes Mellitus Type 2: Yes - HEMATOLOGICAL/ONCOLOGICAL Hx Blood Disorders: Yes Hx Cancer: Yes (Rt breast Cancer) - INTEGUMENTARY Hx Dermatological Problems: No - MUSCULOSKELETAL/RHEUMATOLOGICAL Hx Musculoskeletal Disorders: Yes Hx Falls: Yes - GASTROINTESTINAL Hx Gastrointestinal Disorders: No - GENITOURINARY/GYNECOLOGICAL Hx Genitourinary Disorders: No - PSYCHIATRIC Hx Psychophysiologic Disorder: No - SURGICAL HISTORY Hx Surgeries: Yes Hx Hysterectomy: Yes Other/Comment: lumpectomy - ANESTHESIA Hx Anesthesia: Yes Hx Anesthesia Reactions: Yes (REINTUBATED) Hx Malignant Hyperthermia: No Meds Allergies/Adverse Reactions: Allergies Allergy/AdvReac Type Severity Reaction Status Date / Time No Known Allergies Allergy Verified 03/30/18 15:38 - Medications Medications: Current Medications Aspirin (Ecotrin) 81 mg PO DAILY [facility] Last Admin: 04/03/18 09:27 Dose: 81 mg Atorvastatin Calcium (Lipitor) 40 mg PO DIN [facility] Last Admin: 01/06/19 17:34 Dose: 40 mg Calcium Carbonate (Oscal) 500 mg PO DAILY [facility] Last Admin: 04/03/18 09:27 Dose: 500 mg Cholecalciferol (Vitamin D) 2,000 intlu PO DAILY [facility] Last Admin: 04/03/18 09:27 Dose: 2,000 intlu Fluticasone Propionate (Flonase) 1 actuation NS DAILY [facility] Last Admin: 04/03/18 09:27 Dose: 1 spr Home Med (Home Med) 2 unit PO QAM [facility] Last Admin: 04/03/18 09:28 Dose: 2 unit Home Med (Home Med) 3 unit PO HS [facility] Last Admin: 04/02/18 21:41 Dose: 3 unit Insulin Human Regular (Humulin R Low) 0 units SC ACHS [facility]; Protocol Last Admin: 04/03/18 08:03 Dose: Not Given Metformin HCl (Glucophage) 500 mg PO BID [facility] Last Admin: 04/03/18 09:29 Dose: Not Given Sitagliptin Phosphate (Januvia) 100 mg PO DAILY [facility] Last Admin: 04/02/18 09:22 Dose: 100 mg Physical Exam - Constitutional Appears: Well, Non-toxic, No Acute Distress - Head Exam Head Exam: ATRAUMATIC, NORMOCEPHALIC - Eye Exam Eye Exam: Normal appearance Pupil Exam: NORMAL ACCOMODATION - ENT Exam ENT Exam: Mucous Membranes Moist - Respiratory Exam Respiratory Exam: Clear to Auscultation Bilateral - GI/Abdominal Exam GI & Abdominal Exam: Normal Bowel Sounds - Extremities Exam Additional comments: B/L lower extremity exam: Vascular: DP/PT 2/4 B/L, CFT <3 Secs x 10, TG warm to warm.no erythema or edema noted Derm: hyperkeratotic lesion noted submet 5 b/l, no open lesions, no clinical signs of infection neuro: protective sensation intact via ipswich 4/4 b/l ortho: pain on palpation to the hyperkeratotic lesions Results - Vital Signs Recent Vital Signs: Last Vital Signs Temp 97.8 F 04/03/18 06:04 Pulse 79 04/03/18 06:04 Resp 19 04/03/18 06:04 BP 130/83 04/03/18 06:04 Pulse Ox 96 04/03/18 06:04 - Labs Result Diagrams: 04/03/18 06:30 04/03/18 06:30 Labs: Laboratory Results - last 24 hr 04/02/18 04/02/18 04/02/18 10:30 11:09 16:16 WBC RBC Hgb Hct MCV MCH MCHC RDW Plt Count MPV Gran % Lymph % (Auto) [place] % (Auto) Eos % (Auto) Baso % (Auto) Gran # Lymph # (Auto) [place] # (Auto) Eos # (Auto) Baso # (Auto) PT INR APTT Sodium Potassium Chloride Carbon Dioxide Anion Gap BUN Creatinine Est GFR ( Amer) Est GFR (Non-Af Amer) POC Glucose (mg/dL) 210 H 147 H Random Glucose Calcium Total Bilirubin AST ALT Alkaline Phosphatase Total Protein Albumin Globulin Albumin/Globulin Ratio Vitamin B12 > 1000 H Blood Type Blood Type Confirm Antibody Screen BBK History Checked 04/02/18 04/03/18 04/03/18 21:50 06:30 06:30 WBC 7.3 RBC 4.81 Hgb 13.3 Hct 40.3 MCV 83.8 MCH 27.7 MCHC 33.0 RDW 13.4 Plt Count 229 MPV 10.0 Gran % 69.4 H Lymph % (Auto) 22.7 [place] % (Auto) 6.8 H Eos % (Auto) 1.0 L Baso % (Auto) 0.1 Gran # 5.06 Lymph # (Auto) 1.7 [place] # (Auto) 0.5 Eos # (Auto) 0.1 Baso # (Auto) 0.01 PT 11.4 INR 0.99 APTT 28.4 Sodium Potassium Chloride Carbon Dioxide Anion Gap BUN Creatinine Est GFR ( Amer) Est GFR (Non-Af Amer) POC Glucose (mg/dL) 199 H Random Glucose Calcium Total Bilirubin AST ALT Alkaline Phosphatase Total Protein Albumin Globulin Albumin/Globulin Ratio Vitamin B12 Blood Type Blood Type Confirm Antibody Screen BBK History Checked 04/03/18 04/03/18 04/03/18 06:30 06:30 07:15 WBC RBC Hgb Hct MCV MCH MCHC RDW Plt Count MPV Gran % Lymph % (Auto) [place] % (Auto) Eos % (Auto) Baso % (Auto) Gran # Lymph # (Auto) [place] # (Auto) Eos # (Auto) Baso # (Auto) PT INR APTT Sodium 139 Potassium 3.7 Chloride 101 Carbon Dioxide 28 Anion Gap 13 BUN 20 Creatinine 0.7 Est GFR ( Amer) > 60 Est GFR (Non-Af Amer) > 60 POC Glucose (mg/dL) Random Glucose 167 H Calcium 9.2 Total Bilirubin 0.3 AST 31 ALT 40 Alkaline Phosphatase 76 Total Protein 7.2 Albumin 4.2 Globulin 3.0 Albumin/Globulin Ratio 1.4 Vitamin B12 Blood Type O POSITIVE Blood Type Confirm O POSITIVE Antibody Screen Negative BBK History Checked No verified bt 04/03/18 07:44 WBC RBC Hgb Hct MCV MCH MCHC RDW Plt Count MPV Gran % Lymph % (Auto) [place] % (Auto) Eos % (Auto) Baso % (Auto) Gran # Lymph # (Auto) [place] # (Auto) Eos # (Auto) Baso # (Auto) PT INR APTT Sodium Potassium Chloride Carbon Dioxide Anion Gap BUN Creatinine Est GFR ( Amer) Est GFR (Non-Af Amer) POC Glucose (mg/dL) 177 H Random Glucose Calcium Total Bilirubin AST ALT Alkaline Phosphatase Total Protein Albumin Globulin Albumin/Globulin Ratio Vitamin B12 Blood Type Blood Type Confirm Antibody Screen BBK History Checked Assessment & Plan - Assessment and Plan (Free Text) Assessment: 67 yo female with hyperkeratotic lesions b/l on feet Plan: Patient seen and evaluated History and plan discussed in detail with the attending, Dr. Juan Hyperkeratotic lesions submet 5 b/l debrided using a #15 blade. No complications No dressing needed to the feet Patient may weightbear as tolerated Podiatry will now sign off on the patient, please reconsult if necessary
--- NOTE | 2018-04-03 11:19 | PN ---
DATE: 04/03/2018 SUBJECTIVE: The patient says she is comfortable. She has no complaints of any chest pain or shortness of breath or headaches. No dizziness. PHYSICAL EXAMINATION: VITAL SIGNS: Temperature 97.8, pulse 79, blood pressure 130/83, respirations 19. GENERAL: The patient is lying in bed, flat, comfortable. HEENT: No oral lesion. Anicteric sclerae. Moist mucosa. NECK: No JVD, adenopathy, or thyromegaly. CARDIOVASCULAR: S1 and S2, regular. No murmurs, rubs, or gallops. LUNGS: Clear to auscultation bilaterally. No wheeze, rales, or rhonchi. ABDOMEN: Bowel sounds are positive, soft, nontender and nondistended. EXTREMITIES: no cyanosis, clubbing or edema. LABORATORY DATA: White count of 7.3, hemoglobin 13.3, creatinine 0.7 ASSESSMENT: 1. Chest pain, resolved. 2. Diabetes type 2. 3. Dyslipidemia. 4. Chronic inflammatory demyelinating polyneuropathy. 5. Gait dysfunction. 6. Chronic back pain. PLAN: The patient is currently comfortable. She is going to continue her vitamin D and calcium that she was taking at home. The patient is going to have a biopsy tomorrow. The patient is on Januvia for her diabetes. She is on Lipitor for dyslipidemia. She was going to have a stress test, but the layout mechanic has decided that she does not require stress testing. She has an DONA and C3 and C4 that has been negative. The patient has other serology that is pending. I did speak to the patient's daughters at the bedside to give her an update on the patient's diagnosis and plan of care. She will most likely go to subacute rehab after she has her biopsy. Khurram Sharma MD
[2018-04-03] MEDS ORDERED: POLYETHYLENE GLYCOL 3350 17 GM/Dose PACKET PO SCH (11:45)
--- NOTE | 2018-04-03 16:17 | CP.PCM.PCO ---
Physician Communication Note - Physician Communication Note Physician Communication Note: muscle biposy to see for cidp/ Rehab and f/u with Dr. Philippe
[2018-04-03] MEDS: METANX PO SCH (17:59)
[2018-04-03] MEDS: POLYETHYLENE GLYCOL 3350 17 GM/Dose PACKET PO SCH (18:00)
[2018-04-04 07:03] LABS: BASO # 0.02 K/mm3 (0.0-2.0); BASO % 0.3 % (0.0-3.0); EOS # 0.1 (0.0-0.7); EOS % 0.8 % (1.5-5.0); GRAN # 4.77 (1.4-6.5); GRAN % 66.4 % (50.0-68.0); HEMOGLOBIN 12.9 g/dL (12.0-16.0); LYMPH # 1.8 (1.2-3.4); LYMPH % 24.9 % (22.0-35.0); MEAN CELL VOLUME 83.8 fl (80.0-105.0); MEAN CORPUSCULAR HEMOGLOBIN 27.9 pg (25.0-35.0); MEAN CORPUSCULAR HGB CONC 33.2 g/dl (31.0-37.0); MEAN PLATELET VOLUME 10.2 fl (7.0-11.0); MONO # 0.6 (0.1-0.6); MONO % 7.6 % (1.0-6.0); RBC 4.63 10^6/uL (3.5-6.1); RED CELL DISTRIBUTION WIDTH 13.4 % (11.5-14.5); WHITE BLOOD COUNT 7.2 10^3/uL (4.5-11.0)
[2018-04-04] MEDS ORDERED: Liquid Adhesive TOP ONE (07:21)
[2018-04-04] MEDS ORDERED: Lidocaine 1% Inj (20ml) ONE (07:21)
[2018-04-04] MEDS ORDERED: Bupivacaine 0.5% 50 ML IJ ONE (07:21)
[2018-04-04 07:22] LABS: BLOOD UREA NITROGEN 15 mg/dL (7-21); CALCIUM 9.2 mg/dL (8.4-10.5); GFR NON-AFRICAN AMERICAN > 60
[2018-04-04] MEDS ORDERED: Propofol 10 mg/ml Inj (20 ML) ONE (07:41)
[2018-04-04] MEDS ORDERED: Etomidate 20 mg/10ml Inj IV ONE (07:42)
[2018-04-04] MEDS ORDERED: Lactated Ringer's 1,000 ML IV SCH (09:45)
--- NOTE | 2018-04-04 09:45 | PCM.SURG1 ---
Surgeon's Initial Post Op Note - Surgeon's Notes Surgeon: Dr. Jean Flight Crew Ordnanceman: PGY2, Radha OMS3 Type of Anesthesia: General LMA Pre-Operative Diagnosis: rule out chronic inflammatory demyelinating Polyneuropathy (CIDP) Operative Findings: Healthy muscle Post-Operative Diagnosis: As above Operation Performed: 1. Muscle Biopsy of Left Bicep. 2. Muscle biopsy of Right Quadricep Specimen/Specimens Removed: 1. Right Quadricep. 2. Left Bicep Estimated Blood Loss: EBL {In ML}: 5 Drains Used: No Drains Post-Op Condition: Good Date of Surgery/Procedure: 04/04/18 Time of Surgery/Procedure: 09:49
[2018-04-04] MEDS: Fluticasone Nasal 50 mcg/Spray NS SCH (10:49)
[2018-04-04] MEDS: METANX PO SCH ×2 (10:51→17:41)
[2018-04-04] MEDS: Cholecalciferol 1,000 INTLU TAB PO SCH (10:51)
[2018-04-04] MEDS: POLYETHYLENE GLYCOL 3350 17 GM/Dose PACKET PO SCH ×2 (10:52→17:42)
[2018-04-04] MEDS: ZONISAMIDE 100 MG PO SCH ×2 (12:15→21:11)
[2018-04-04] MEDS: Insulin Reg-LOW-Coverage SC SCH ×4 (12:17→21:43)
--- NOTE | 2018-04-04 18:22 | PN ---
DATE: 04/04/2018 SUBJECTIVE: The patient has no complaints of any chest pain or shortness of breath. She had a biopsy in the left arm and the right leg. She says she does have some pain in the left leg, but it is better than earlier after the procedure. PHYSICAL EXAMINATION: VITAL SIGNS: Temperature 98.6, pulse of 86, blood pressure 139/86, respirations 19. GENERAL: The patient is lying in bed, flat, comfortable. HEENT: No oral lesion. Anicteric sclerae. Moist mucosa. NECK: No JVD, adenopathy, or thyromegaly. CARDIOVASCULAR: S1 and S2, regular. No murmurs, rubs, or gallops. LUNGS: Clear to auscultation bilaterally. No wheeze, rales, or rhonchi. ABDOMEN: Bowel sounds are positive, soft, nontender and nondistended. EXTREMITIES: No cyanosis, clubbing or edema. LABORATORY DATA: White count is 7.2, hemoglobin 12.9, creatinine is 0.7. ASSESSMENT: 1. Chest pain, resolved. 2. Diabetes type 2. 3. Dyslipidemia. 4. Chronic inflammatory demyelinating polyneuropathy. 5. Gait dysfunction. 6. Chronic back pain. PLAN: The patient is currently on Flonase. She is going to continue with Januvia for her diabetes. She is receiving Lipitor for dyslipidemia. Now the patient is receiving vitamin D. She is on . She is willing to go to subacute rehab. She had a biopsy done today. The patient's serology was reviewed. DONA is negative. Anti-CCP is normal. T3 and T4 is normal. Her SSA and SSB antibodies are normal. ANCA screen is pending. I did speak to the patient's family members at bedside to update the patient's diagnosis and plan of care. Khurram Sharma MD
[2018-04-04 18:55] LABS: ALDOLASE 6.4 U/L (<=8.1)
[2018-04-04] MEDS ORDERED: DiphenhydrAMINE 50 mg/ml Inj IVP ONE ×2 (21:00→23:00)
[2018-04-05 07:32] LABS: BASO # 0.02 K/mm3 (0.0-2.0); BASO % 0.3 % (0.0-3.0); EOS % 0.6 % (1.5-5.0); GRAN # 4.8 (1.4-6.5); HEMOGLOBIN 13.2 g/dL (12.0-16.0); LYMPH # 1.6 (1.2-3.4); LYMPH % 22.5 % (22.0-35.0); MEAN CELL VOLUME 84.4 fl (80.0-105.0); MEAN CORPUSCULAR HEMOGLOBIN 28.3 pg (25.0-35.0); MEAN CORPUSCULAR HGB CONC 33.5 g/dl (31.0-37.0); MEAN PLATELET VOLUME 9.7 fl (7.0-11.0); MONO # 0.8 (0.1-0.6); MONO % 10.6 % (1.0-6.0); RBC 4.67 10^6/uL (3.5-6.1); RED CELL DISTRIBUTION WIDTH 13.6 % (11.5-14.5); WHITE BLOOD COUNT 7.3 10^3/uL (4.5-11.0)
--- NOTE | 2018-04-05 07:37 | CP.PCM.PN ---
<Efrenn - Last Filed: 04/05/18 07:38> Subjective - Date & Time of Evaluation Date of Evaluation: 04/05/18 Time of Evaluation: 07:32 - Subjective Subjective: Surgery Progress note- Dr. Davis Patient seen and examined at bedside. States has Left upper extremity pain around incision. Incision closed w/ dermabond C/D/I. RLE incision C/D/I. patient sitting upright in chair during encounter. +OOB and ambulating. Denies fevers, chills, chest pain, shortness of breath Objective - Vital Signs/Intake and Output Vital Signs (last 24 hours): Temp Pulse Resp BP Pulse Ox 97.7 F 92 H 20 124/87 94 L 04/04/18 16:59 04/04/18 16:59 04/04/18 16:59 04/04/18 16:59 04/04/18 16:59 Intake and Output: 04/05/18 04/05/18 06:59 18:59 Intake Total 480 Balance 480 - Medications Medications: Current Medications Acetaminophen (Tylenol 325mg Tab) 650 mg PO Q4H PRN PRN Reason: Pain, moderate (4-7) Last Admin: 04/05/18 00:52 Dose: 650 mg Aspirin (Ecotrin) 81 mg PO DAILY [facility] Last Admin: 04/03/18 09:27 Dose: 81 mg Atorvastatin Calcium (Lipitor) 40 mg PO DIN [facility] Last Admin: 04/04/18 17:41 Dose: 40 mg Calcium Carbonate (Oscal) 500 mg PO DAILY [facility] Last Admin: 04/04/18 10:52 Dose: 500 mg Cholecalciferol (Vitamin D) 2,000 intlu PO DAILY [facility] Last Admin: 04/04/18 10:51 Dose: 2,000 intlu Fluticasone Propionate (Flonase) 1 actuation NS DAILY [facility] Last Admin: 04/04/18 10:49 Dose: 1 spr Home Med (Home Med) 2 unit PO QAM [facility] Last Admin: 04/04/18 12:15 Dose: Not Given Home Med (Home Med) 3 unit PO HS [facility] Last Admin: 04/04/18 21:11 Dose: 3 unit Home Med (Home Med) 1 unit PO BID [facility] Last Admin: 04/04/18 17:41 Dose: 1 unit Insulin Human Regular (Humulin R Low) 0 units SC ACHS [facility]; Protocol Last Admin: 04/04/18 21:43 Dose: Not Given Metformin HCl (Glucophage) 500 mg PO BID [facility] Last Admin: 04/03/18 09:29 Dose: Not Given Polyethylene Glycol (Miralax) 17 gm PO BID [facility] Last Admin: 04/04/18 17:42 Dose: 17 gm Sitagliptin Phosphate (Januvia) 100 mg PO DAILY [facility] Last Admin: 04/03/18 09:28 Dose: 100 mg Tramadol HCl (Ultram) 50 mg PO Q4 PRN PRN Reason: Pain, moderate (4-7) - Labs Labs: 04/04/18 06:00 04/04/18 06:00 PT 11.4 SECONDS (9.4-12.5) 04/03/18 06:30 INR 0.99 04/03/18 06:30 APTT 28.4 Seconds (25.1-36.5) 04/03/18 06:30 - Constitutional Appears: Non-toxic, Chronically Ill - Eye Exam Eye Exam: EOMI - ENT Exam ENT Exam: Mucous Membranes Moist - Respiratory Exam Respiratory Exam: NORMAL BREATHING PATTERN. absent: Accessory Muscle Use, Chest Wall Tenderness, Respiratory Distress - Cardiovascular Exam Cardiovascular Exam: REGULAR RHYTHM. absent: Bradycardia, Tachycardia - GI/Abdominal Exam GI & Abdominal Exam: Soft. absent: Distended, Firm, Guarding, Rigid, Tenderness - Extremities Exam Additional comments: LUE incision C/D/I RLE incision C/D/I Both closed w/ Dermabond - Neurological Exam Neurological Exam: Alert, Awake, Oriented x3 - Psychiatric Exam Psychiatric exam: Normal Affect - Skin Skin Exam: Intact, Warm Assessment and Plan - Assessment and Plan (Free Text) Assessment: 67F w/o CIPD s/p L bicep, R Quad muscle biopsy Plan: - monitor site - pain control PRN - Diet as tolerated - encourage OOB and ambulation - f/u Pathology - no further acute surgical intervention indicated at this time - further recs per Dr. Sahnnon Villa PGY2 <Erick Davis - Last Filed: 04/05/18 20:13> Objective - Vital Signs/Intake and Output Vital Signs (last 24 hours): Temp Pulse Resp BP Pulse Ox 98.6 F 89 19 131/93 H 95 01/09/19 17:23 04/05/18 17:23 04/05/18 17:23 04/05/18 17:23 04/05/18 17:23 - Labs Labs: 04/05/18 07:15 04/05/18 07:15 PT 11.4 SECONDS (9.4-12.5) 04/03/18 06:30 INR 0.99 04/03/18 06:30 APTT 28.4 Seconds (25.1-36.5) 04/03/18 06:30 Assessment and Plan - Assessment and Plan (Free Text) Plan: Patient was seen and examined by me at the bedside. I agree with assessment and plan as stated in the resident's note.
[2018-04-05 07:40] LABS: BLOOD UREA NITROGEN 15 mg/dL (7-21); CALCIUM 9.3 mg/dL (8.4-10.5); GFR NON-AFRICAN AMERICAN > 60
[2018-04-05 08:15] VITALS: O2SAT 95
[2018-04-05] MEDS: Cholecalciferol 1,000 INTLU TAB PO SCH (09:01)
[2018-04-05] MEDS: POLYETHYLENE GLYCOL 3350 17 GM/Dose PACKET PO SCH ×2 (09:01→18:10)
[2018-04-05] MEDS: Fluticasone Nasal 50 mcg/Spray NS SCH (09:02)
[2018-04-05] MEDS: ZONISAMIDE 100 MG PO SCH (09:02)
[2018-04-05] MEDS: Insulin Reg-LOW-Coverage SC SCH ×2 (09:08→18:10)
[2018-04-05] MEDS: METANX PO SCH ×2 (09:09→18:11)
--- NOTE | 2018-04-05 09:33 | DS ---
HISTORY OF PRESENT ILLNESS: This is a 67-year-old female who came to the hospital because of atypical chest pain. She was seen by Cardiology and felt that she does not have need for a stress test at this point. She had a biopsy done by Dr. Davis. She is waiting to go to subacute rehab. She has pain in the left biceps where she had the biopsy done. She has no complaint of any headaches or dizziness. No nausea, no vomiting. PHYSICAL EXAMINATION: VITAL SIGNS: Temperature is 97.7, pulse of 92, blood pressure 124/87, respirations 20. GENERAL: The patient is lying in bed, flat, comfortable. HEENT: No oral lesion. Anicteric sclerae. Moist mucosa. NECK: No JVD, adenopathy, or thyromegaly. CARDIOVASCULAR: S1 and S2, regular. No murmurs, rubs, or gallops. LUNGS: Clear to auscultation bilaterally. No wheeze, rales, or rhonchi. ABDOMEN: Bowel sounds are positive, soft, nontender and nondistended. EXTREMITIES: No cyanosis, clubbing or edema. LABORATORY DATA: White count is 7.3, hemoglobin 13.2, creatinine 0.7. ASSESSMENT: 1. Atypical chest pain, resolved. 2. Diabetes type 2. 3. Chronic inflammatory demyelinating polyneuropathy. 4. Dyslipidemia. 5. Gait dysfunction. 6. Chronic back pain. 7. The patient is currently on metformin, this will be continued for her diabetes. PLAN: 1. She is going to continue with Januvia. She is on Lipitor for dyslipidemia. She is on calcium for osteoporosis prevention, she is on tramadol for pain. She is waiting to be discharged to subacute rehab. Condition stable. Activities increase as tolerated. Follow up with in 1 to 2 weeks. 2. Follow up with Dr. Cortez in 1 to 2 weeks. 3. If the patient is accepted to subacute rehab, we are trying to find if she can be transferred to [facility] for her IVIG treatment that she is getting every 2 weeks. I did call office and was not able to get in touch with him. He is away and will not be back until 04/10. I did leave my message for him to call me back. Khurram Sharma MD [facility] # [id number]
[2018-04-05] MEDS ORDERED: PREMIXED IV ONE (13:27)
[2018-04-05] MEDS ORDERED: IMMUNE GLOBULIN IV ONE (13:27)
[2018-04-05] MEDS ORDERED: Acetaminophen 650mg/20.3ml solution UD PO ONE (14:00)
[2018-04-05 17:24] VITALS: BP 131/93; PULSE 89; RESP 19; TEMP 98.6
--- NOTE | 2018-04-05 21:01 | CP.PCM.CON ---
<Manuel Villa - Last Filed: 04/05/18 20:57> History of Present Illness - History of Present Illness History of Present Illness: Surgery Consult note- Dr. Davis 67F PMHx significant for DM II, HLD, spinal stenosis with multiple herniated discs, Breast cancer (with R-lumpectomy) who presented to [facility] for shortness of breath and generalized weakness. Patient has been seeing her neurologist for several years for her neurological complaints and was told that she may have Chronic Inflammatory Demyelinating Polyneuropathy, or CIDP. Patient has been receiving IV infusions of IVIG for the past month as per neurologist (Dr. Philippe). Surgery was consulted for muscle biopsy. Patient was seen and examined at bedside this morning. She is AAOx3. She states that her weakness has been going on for x1 year and has worsened in the last 3 months, with associated shortness of breath in the last 3 weeks. She endorsed 60 lb weight loss within the past year; this was confirmed by family members present at bedside. Patient has trouble sitting down in a chair and reaching for objects. She also has occasional numbness and tingling of the extremities. Denies fever, chills, nausea, vomiting, abdominal pain, cp. PMHx: DM II, HLD, spinal stenosis with multiple herniated discs, Breast cancer ( with R-lumpectomy) PSHx: rotator cuff surgery (12 years ago), Hysterectomy w/ oophorectomy, bilateral carpal tunnel surgery (12 years ago), R-breast lumpectomy, cervical and lumbar herniated discs x10 SocialHx: Denies tobacco, etoh, recreational drug use Allergies: NKDA FamHx: non-contributory 12 pt ROS conducted, negative otherwise stated above Review of Systems - Review of Systems All systems: reviewed and no additional remarkable complaints except - Constitutional Constitutional: As Per HPI Past Patient History - Past Social History Smoking Status: Former Smoker - CARDIAC Hx Cardiac Disorders: No - PULMONARY Hx Respiratory Disorders: Yes Hx Chronic Obstructive Pulmonary Disease (COPD): Yes - NEUROLOGICAL Hx Neurological Disorder: No - HEENT Hx HEENT Problems: No - RENAL Hx Chronic Kidney Disease: No - ENDOCRINE/METABOLIC Hx Diabetes Mellitus Type 2: Yes - HEMATOLOGICAL/ONCOLOGICAL Hx Blood Transfusions: No Hx Blood Transfusion Reaction: No - INTEGUMENTARY Hx Dermatological Problems: No - MUSCULOSKELETAL/RHEUMATOLOGICAL Hx Musculoskeletal Disorders: Yes Hx Falls: Yes - GASTROINTESTINAL Hx Gastrointestinal Disorders: No - GENITOURINARY/GYNECOLOGICAL Hx Genitourinary Disorders: No - PSYCHIATRIC Hx Psychophysiologic Disorder: No - SURGICAL HISTORY Hx Surgeries: Yes - ANESTHESIA Hx Anesthesia Reactions: Yes (REINTUBATED) Hx Malignant Hyperthermia: No Meds Allergies/Adverse Reactions: Allergies Allergy/AdvReac Type Severity Reaction Status Date / Time No Known Allergies Allergy Verified 03/30/18 15:38 Physical Exam - Constitutional Appears: Non-toxic, No Acute Distress - Head Exam Head Exam: ATRAUMATIC - Eye Exam Eye Exam: EOMI - ENT Exam ENT Exam: Mucous Membranes Moist - Respiratory Exam Respiratory Exam: NORMAL BREATHING PATTERN. absent: Accessory Muscle Use, Chest Wall Tenderness, Respiratory Distress - Cardiovascular Exam Cardiovascular Exam: REGULAR RHYTHM, +S1, +S2. absent: Bradycardia, Tachycardia - GI/Abdominal Exam GI & Abdominal Exam: Soft. absent: Distended, Firm, Guarding, Tenderness - Extremities Exam Additional comments: decreased muscle strength in upper and lower extremity - Neurological Exam Neurological exam: Alert, Oriented x3 - Psychiatric Exam Psychiatric exam: Normal Affect - Skin Skin Exam: Intact, Warm Results - Vital Signs Recent Vital Signs: Last Vital Signs Temp 98.6 F 04/05/18 17:23 Pulse 89 04/05/18 17:23 Resp 19 04/05/18 17:23 BP 131/93 H 04/05/18 17:23 Pulse Ox 95 04/05/18 17:23 - Labs Result Diagrams: 04/05/18 07:15 04/05/18 07:15 Labs: Laboratory Results - last 24 hr 04/04/18 04/05/18 04/05/18 21:36 07:15 07:15 WBC 7.3 RBC 4.67 Hgb 13.2 Hct 39.4 MCV 84.4 MCH 28.3 MCHC 33.5 RDW 13.6 Plt Count 223 MPV 9.7 Gran % 66.0 Lymph % (Auto) 22.5 Posey % (Auto) 10.6 H Eos % (Auto) 0.6 L Baso % (Auto) 0.3 Gran # 4.80 Lymph # (Auto) 1.6 Posey # (Auto) 0.8 H Eos # (Auto) 0.0 Baso # (Auto) 0.02 Sodium 138 Potassium 3.7 Chloride 103 Carbon Dioxide 27 Anion Gap 11 BUN 15 Creatinine 0.7 Est GFR ( Amer) > 60 Est GFR (Non-Af Amer) > 60 POC Glucose (mg/dL) 180 H Random Glucose 165 H Calcium 9.3 04/05/18 04/05/18 04/05/18 07:45 11:12 16:16 WBC RBC Hgb Hct MCV MCH MCHC RDW Plt Count MPV Gran % Lymph % (Auto) Posey % (Auto) Eos % (Auto) Baso % (Auto) Gran # Lymph # (Auto) Posey # (Auto) Eos # (Auto) Baso # (Auto) Sodium Potassium Chloride Carbon Dioxide Anion Gap BUN Creatinine Est GFR ( Amer) Est GFR (Non-Af Amer) POC Glucose (mg/dL) 175 H 191 H 147 H Random Glucose Calcium Assessment & Plan - Assessment and Plan (Free Text) Assessment: 67F with possible Chronic Inflammatory Demyelinating Polyneuropathy requiring muscle biopsy Plan: - Plan for Muscle biopsy in OR of Left UE and R LE - Hold AC - NPO after midnight - continued medical management per primary team - discussed w/ Dr. Davis Surgical Attending <Erick Davis - Last Filed: 04/06/18 17:15> Results - Vital Signs Recent Vital Signs: Last Vital Signs Temp 98.6 F 04/05/18 17:23 Pulse 89 04/05/18 17:23 Resp 19 04/05/18 17:23 BP 131/93 H 04/05/18 17:23 Pulse Ox 95 04/05/18 17:23 - Labs Result Diagrams: 04/05/18 07:15 04/05/18 07:15 Labs: Laboratory Results - last 24 hr 04/01/18 07:00 ANCA Screen Negative c-ANCA Titer TNP Proteinase 3 (PR3) <1.0 p-ANCA Titer TNP Atypical p-ANCA Titer TNP Myeloperoxidase Ab <1.0 Assessment & Plan - Assessment and Plan (Free Text) Plan: Patient was seen, evaluated and examined by me at the bedside. I agree with assessment and plan as stated in the resident's note.
--- NOTE | 2018-04-06 04:11 | OP ---
PROCEDURE DATE: 04/04/2018 PREOPERATIVE DIAGNOSIS: Chronic inflammatory demyelinating polyneuropathy. POSTOPERATIVE DIAGNOSIS: Chronic inflammatory demyelinating polyneuropathy. PROCEDURES PERFORMED: 1. Muscle biopsy of the left biceps. 2. Muscle biopsy of the right quadriceps. SURGEON: Erick Davis MD HIGHWAY ENGINEERING TEACHER: Manuel Villa DO ANESTHESIOLOGIST: Lamont Myo MD ANESTHESIA: General LMA anesthesia. ESTIMATED BLOOD LOSS: Minimal. SPECIMENS: 1. Left biceps tissue. 2. Right quadriceps tissue. INDICATIONS: The patient is a 67-year-old female who was admitted with upper and lower extremity weakness, chronic pains, and diabetes. The patient currently was scheduled for muscle biopsy in order to identify the polyneuropathy type. DESCRIPTION OF PROCEDURE: The patient was brought to the operating room, placed on the operating table in supine position. The patient was connected to EKG, blood pressure, and pulse oximetry monitors. The patient then underwent general LMA anesthesia, was prepped and draped in the usual sterile fashion. First, a standard time-out procedure took place, when everybody in the room agreed as to the patient's identity, diagnosis, and procedure to be performed. Using lidocaine mixed with Marcaine, the area of the left biceps was infiltrated on the anterior aspect of the biceps and carefully incision was made for about 5 cm in order to access the subcutaneous tissue. Using electrocautery, the subcutaneous was dissected down to the fascia of the muscle and fascia was incised. The muscle fibers were exposed and about 1 cm thick specimen was from the remaining muscle portion and the length of the specimen was about 4 cm. This was carefully detached, ligated at both ends and sent as a specimen with a saline gauze. In a similar fashion, a second biopsy specimen from the right quadriceps was obtained and sent as a specimen to the laboratory. The wounds were copiously irrigated and any bleeding points were cauterized. The subcutaneous tissues were closed in layers using 3-0 Vicryl for the fascial layer, 3-0 Vicryl for subcutaneous layer, and 4-0 Monocryl for skin. Sterile Dermabond dressing was applied to the wounds. The patient tolerated the procedure well and there were no complications. The patient was awakened and transferred to the recovery room for further observation. Erick Davis MD
[2018-04-06 13:40] LABS: ANCA SCREEN NEGATIVE (NEGATIVE)
== END 2018-04-05 19:41 | DRG 41 ==
LOC: ED 14:59 → ERH 18:33 → 2RNO 21:34 → 3RNO 04-04 12:51
PROVIDERS: ADMIT Internal Medicine Nephrology; ATTEND Internal Medicine Nephrology
PROC: 0HDNXZZ Extraction of Left Foot Skin, External Approach (ICD-10-PCS; 2018-04-03)
PROC: 0HDMXZZ Extraction of Right Foot Skin, External Approach (ICD-10-PCS; 2018-04-03)
PROC: 0KBQ0ZX Excision of Right Upper Leg Muscle, Open Approach, Diagnostic (ICD-10-PCS; 2018-04-04)
PROC: 0KB80ZX Excision of Left Upper Arm Muscle, Open Approach, Diagnostic (ICD-10-PCS; principal; 2018-04-04 07:30)
DX: G61.81 Chronic inflammatory demyelinating polyneuritis (principal); R07.89 Other chest pain; J98.11 Atelectasis; E11.40 Type 2 diabetes mellitus with diabetic neuropathy, unspecified; R63.4 Abnormal weight loss; I27.21 Secondary pulmonary arterial hypertension; M48.00 Spinal stenosis, site unspecified; G89.29 Other chronic pain; E78.5 Hyperlipidemia, unspecified; L84 Corns and callosities; L85.9 Epidermal thickening, unspecified; Z85.3 Personal history of malignant neoplasm of breast; Z79.84 Long term (current) use of oral hypoglycemic drugs; Z87.891 Personal history of nicotine dependence

== ENCOUNTER 2018-05-10 15:55 | Inpatient (IN) | payer MEDICARE ==
--- NOTE | 2018-05-10 16:38 | CT ---
Date of service: 05/10/2018 PROCEDURE: CT HEAD WITHOUT CONTRAST. HISTORY: Code Stroke COMPARISON: MR brain without IV contrast performed 11/04/16 TECHNIQUE: Axial computed tomography images were obtained through the head/brain without intravenous contrast. Radiation dose: Total exam DLP = 885.42 mGy-cm. This CT exam was performed using one or more of the following dose reduction techniques: Automated exposure control, adjustment of the mA and/or kV according to patient size, and/or use of iterative reconstruction technique. FINDINGS: HEMORRHAGE: No intracranial hemorrhage. BRAIN: No mass effect or edema. Rodney-white matter differentiation appears intact. Please note that MRI with diffusion imaging is more sensitive in the detection of acute ischemic event. VENTRICLES: No hydrocephalus. CALVARIUM: Unremarkable. PARANASAL SINUSES: Unremarkable as visualized. No significant inflammatory changes. MASTOID AIR CELLS: Unremarkable as visualized. No inflammatory changes. OTHER FINDINGS: None. IMPRESSION: No acute intracranial pathology identified. Please note that MRI with diffusion imaging is more sensitive in the detection of acute ischemic event. Findings discussed with Dr. Yang on 05/10/18 at 4:27 p.m.
[2018-05-10 16:40] LABS: HEMOGLOBIN 14.6 g/dL (12.0-16.0); LYMPH % 7.6 % (22.0-35.0); MEAN CELL VOLUME 87.9 fl (80.0-105.0); MEAN CORPUSCULAR HEMOGLOBIN 28.5 pg (25.0-35.0); MEAN CORPUSCULAR HGB CONC 32.4 g/dl (31.0-37.0); MEAN PLATELET VOLUME 10.2 fl (7.0-11.0); MONO % 7.7 % (1.0-6.0); RBC 5.12 10^6/uL (3.5-6.1); RED CELL DISTRIBUTION WIDTH 13.9 % (11.5-14.5); WHITE BLOOD COUNT 13.3 10^3/uL (4.5-11.0)
--- NOTE | 2018-05-10 16:41 | RAD ---
Date of service: 05/10/2018 HISTORY: Code Stroke COMPARISON: 04/24/2012 FINDINGS: LUNGS: No active pulmonary disease. PLEURA: Minimal blunting of both costophrenic angles may reflect small pleural effusions or chronic pleural thickening. CARDIOVASCULAR: No aortic atherosclerotic calcification present. Normal cardiac size. No pulmonary vascular congestion. OSSEOUS STRUCTURES: No significant abnormalities. VISUALIZED UPPER ABDOMEN: Normal. OTHER FINDINGS: None. IMPRESSION: No acute infiltrate. Possible small bilateral pleural effusions.
[2018-05-10 16:47] LABS: ALB/GLOB RATIO 1.2 (1.1-1.8); ALBUMIN 4.4 g/dL (3.0-4.8); ALT/SGPT 22 U/L (7-56); AST/SGOT 33 U/L (14-36); BLOOD UREA NITROGEN 33 mg/dL (7-21); GFR NON-AFRICAN AMERICAN > 60; HDL CHOLESTEROL 56 mg/dL (29-60); INR 1.08; PARTIAL THROMBOPLASTIN TIME 28.5 Seconds (26.9-38.3)
[2018-05-10 16:59] LABS: LDL CHOLESTEROL 48 mg/dL (0-129)
[2018-05-10] MEDS: Sodium Chloride 0.9% 1,000 ML IV SCH (17:07)
--- NOTE | 2018-05-10 17:07 | ED PDOC ---
Arrival/HPI - General Chief Complaint: Shortness Of Breath Time Seen by Provider: 05/10/18 15:59 Historian: Family (Daughter at bedside helped provide information ) - History of Present Illness Narrative History of Present Illness (Text): 05/10/18 16:10 67 year old female, whose past medical history includes diabetes, CIDP, spinal stenosis, bilateral surgery, COPD, emphysema, asthma, neuropathy, and 2 torn rotator cuffs, who was brought in to the Emergency department by EMS accompanied by daughter complaining of weakness and headache since yesterday, worse today. Daughter notes patient took 80mg of Aspirin today. Daughter states patient's health has declined in the past year in different ways. Daughter states patient's neurologist is sending patient to [place] to check her for ALS. Daughter reports patient comes to [facility] 2 times a month for effusions. Daughter states patient stopped talking upon arrival to Emergency department and there was also a sudden right sided facial droop noted. Daughter notes patient is usually able to talk weakly and usually is able to keep her mouth closed. Daughter notes patient has had shortness of breath for the past 2 months. Daughter states patient cannot normally walk well, but is able to with assistance. Daughter also states patient is not able to lift legs on demand. Daughter notes patient is able to lift her arm ups very little. There are no other complaints at this time. Time/Duration: Other (Daughter notes onset of headache and weakness as yesterday, worse today ) Symptom Onset: Sudden Symptom Course: Unchanged Activities at Onset: Light Past Medical History - Provider Review Nursing Documentation Reviewed: Yes - Infectious Disease Hx of Infectious Diseases: None - Cardiac Hx Cardiac Disorders: No - Pulmonary Hx Asthma: Yes Hx Chronic Obstructive Pulmonary Disease (COPD): Yes Hx Emphysema: Yes - Neurological Hx Neurological Disorder: No - HEENT Hx HEENT Disorder: No - Renal Hx Renal Disorder: No - Endocrine/Metabolic Hx Endocrine Disorders: Yes Hx Diabetes Mellitus Type 1: Yes - Hematological/Oncological Hx Blood Disorders: Yes Hx Cancer: Yes (breast ca) - Integumentary Hx Dermatological Disorder: No - Musculoskeletal/Rheumatological Hx Falls: Yes Other/Comment: BILATER TORN SHOULDER ROTATOR CUFFS, WITH SURGERY, AND RETORN. 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 - Gastrointestinal Hx Gastrointestinal Disorders: No - Genitourinary/Gynecological Hx Genitourinary Disorders: No - Psychiatric Hx Psychophysiologic Disorder: No Hx Substance Use: No - Surgical History Hx Hysterectomy: Yes Hx Orthopedic Surgery: Yes - Anesthesia Hx Anesthesia: Yes - Suicidal Assessment Feels Threatened In Home Enviroment: No Family/Social History - Physician Review Nursing Documentation Reviewed: Yes Family/Social History: No Known Family HX Smoking Status: Former Smoker Hx Alcohol Use: No Hx Substance Use: No Allergies/Home Meds Allergies/Adverse Reactions: Allergies No Known Allergies Allergy (Verified 03/30/18 15:38) Home Medications: Home Meds Medication Instructions Recorded Confirmed Aspirin [Aspir 81] 81 mg PO DAILY 11/16/12 05/03/18 Cholecalciferol [Vitamin D 1000 IU] 2,000 iu PO DAILY 11/16/12 05/03/18 MetFORMIN [glucoPHAGE] 1,000 mg PO DAILY 10/12/17 05/03/18 Zonisamide [Zonegran] 300 mg PO HS 10/12/17 05/03/18 SITagliptin [Januvia] 100 mg PO DAILY 01/18/18 05/03/18 Zonisamide [Zonegran] 200 mg PO QAM 01/18/18 05/03/18 Acetaminophen [Tylenol 325mg tab] 650 mg PO Q4 PRN 04/19/18 05/03/18 Atorvastatin [Lipitor] 40 mg PO HS 04/19/18 05/03/18 Calcium Carbonate-Vitamin 1 tab PO DAILY 04/19/18 04/19/18 D(500-200mg) Levomefolate Calcium 7.5 mg PO BID 04/19/18 05/03/18 [l-Methylfolate] Polyethylene Glycol 3350 [Miralax] 17 gm PO DAILY PRN 04/19/18 05/03/18 Tramadol HCl [Ultram] 50 mg PO Q4 PRN 04/19/18 05/03/18 Review of Systems - Physician Review All systems were reviewed & negative as marked: Yes - Review of Systems Constitutional: Fatigue (Daughter notes fatigue since yesterday, worse today). absent: Normal Respiratory: SOB (Daughter notes shortness of breath for past 2 months ). absent: Normal Neurological: Headache (Daughter notes onset of headache as yesterday, worse today ). absent: Normal Physical Exam Vital Signs Reviewed: Yes Blood Pressure: Normal Pulse: Tachycardic Respiratory Rate: Tachypneic Appearance: Positive for: Ill-Appearing Pain Distress: Mild Medical Decision Making ED Course and Treatment: 05/10/18 16:54 Impression: 67 year old female who presents to the Emergency department for weakness and headache since yesterday, worse today. Differential Diagnosis included but are not limited to: Plan: -- Labs -- CTA of head/Neck -- CT of head -- EKG -- X-Ray of chest -- IV fluids -- O2 via Nasal Cannula -- Urinalysis -- Reassess and disposition Prior Visits: Notes and results from previous visits were reviewed. Patient was last seen in the emergency department on 03/30/18 for shortness of breath on exertion and weakness all over. Patient was hospitalized in stable condition. Progress Notes: 05/10/18 16:10 Daughter noticed facial droop. 05/10/18 16:14 CAT scan was done 05/10/18 16:[address] Rae, who wants to do TPA on patient. 05/10/18 17:05 Patient started talking again and there is no facial droop at this time. Patient's voice is very weak, which is baseline per her daughter and which is why she is going to be worked up for ALS. Dr. Rae requests CTA of head and neck and says he does not want TPA anymore. Patient is no longer drooling. Patient is moving arms and legs at her baseline as per daughter. 05/10/18 18:25 Dr. Sharma accepted patient onto service. 05/10/18 18:[address] Rae, who said to give a low dosage of Aspirin and Plavix to patient, and requests CK. 05/10/18 18:[address] Rae recommended Plavix and Aspirin, she was not able to swallow. - Lab Interpretations Lab Results: PT 12.0 SECONDS (9.4-12.5) 05/10/18 16:05 INR 1.08 05/10/18 16:05 APTT 28.5 Seconds (26.9-38.3) 05/10/18 16:05 Total Bilirubin 0.5 mg/dL (0.2-1.3) 05/10/18 16:05 AST 33 U/L (14-36) 05/10/18 16:05 ALT 22 U/L (7-56) 05/10/18 16:05 Alkaline Phosphatase 88 U/L (38-126) 05/10/18 16:05 Total Protein 8.0 g/dL (5.8-8.3) 05/10/18 16:05 Albumin 4.4 g/dL (3.0-4.8) 05/10/18 16:05 Globulin 3.7 gm/dL 05/10/18 16:05 Albumin/Globulin Ratio 1.2 (1.1-1.8) 05/10/18 16:05 - RAD Interpretation Narrative RAD Interpretations (Text): CTA of head/neck reviewed by radiologist, shows: Dictated By: Zafar Corona MD Dictated Date/Time: 05/10/18 18:22 IMPRESSION: Calcific atherosclerotic changes at bilateral common carotid bifurcations with mild grade stenosis estimated at 20-39% on each side. X-Ray of chest reviewed by radiologist, shows: Dictated By: Servando Turpin MD Dictated Date/Time: 05/10/18 16:37 Impression: No acute infiltrate. Possible small bilateral pleural effusions. CT of head reviewed by radiologist, shows: Dictated By: Radha Espino MD Dictated Date/Time: 05/10/18 16:34 Impression: No acute intracranial pathology identified. Please note that MRI with diffusion imaging is more sensitive in the detection of acute ischemic event. Findings discussed with Dr. Yang on 05/10/18 at 4:27 PM. Radiology Orders: 05/10/18 16:14 HEAD W/O (CODE STROKE) [CT] Stat CHEST PORTABLE [RAD] Stat Waitress: Radiologist - EKG Interpretation EKG Interpretation (Text): 05/10/18 EKG: Ordered, reviewed, and independently interpreted the EKG. Rate : 108 BPM Rhythm : Sinus Tachycardia Interpretation : Normal intervals, left axis deviation, no ST-elevations Comparison : EKG compared to previous EKG from 03/31/2018, which had similar results as today. Interpreted by ED Physician: Yes Type: 12 lead EKG - Medication Orders Current Medication Orders: Sodium Chloride (Sodium Chloride 0.9%) 1,000 mls @ 100 mls/hr IV .Q10H MAR NIHSS Scale (Allison) Time Performed: 16:30 - How Severe is the Stoke Baseline Level of Consciousness: 1=Drowsy LOC to Questions: 2=Neither correct LOC to commands: 2=Neither correct Facial: 1=Minor asymmetry Motor Arm - Left: NA - Amputation, joint fusion Motor Arm - Right: NA - Amputation, joint fusion - Scribe Statement The provider has reviewed the documentation as recorded by the Scribe Carolyn Santa All medical record entries made by the Scribe were at my direction and personally dictated by me. I have reviewed the chart and agree that the record accurately reflects my personal performance of the history, physical exam, medical decision making, and the department course for this patient. I have also personally directed, reviewed, and agree with the discharge instructions and disposition. Disposition/Present on Arrival - Present on Arrival History of DVT/PE: No History of Uncontrolled Diabetes: No Urinary Catheter: No History of Decub. Ulcer: No History Surgical Site Infection Following: None - Disposition Forms: USINE IO (Danish)
--- NOTE | 2018-05-10 17:09 | ED PDOC ---
Arrival/HPI - General Chief Complaint: Shortness Of Breath Time Seen by Provider: 05/10/18 15:59 Past Medical History - Infectious Disease Hx of Infectious Diseases: None - Cardiac Hx Cardiac Disorders: No - Pulmonary Hx Asthma: Yes Hx Chronic Obstructive Pulmonary Disease (COPD): Yes Hx Emphysema: Yes - Neurological Hx Neurological Disorder: No - HEENT Hx HEENT Disorder: No - Renal Hx Renal Disorder: No - Endocrine/Metabolic Hx Endocrine Disorders: Yes Hx Diabetes Mellitus Type 1: Yes - Hematological/Oncological Hx Blood Disorders: Yes Hx Cancer: Yes (breast ca) - Integumentary Hx Dermatological Disorder: No - Musculoskeletal/Rheumatological Hx Falls: Yes Other/Comment: BILATER TORN SHOULDER ROTATOR CUFFS, WITH SURGERY, AND RETORN. 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 - Gastrointestinal Hx Gastrointestinal Disorders: No - Genitourinary/Gynecological Hx Genitourinary Disorders: No - Psychiatric Hx Psychophysiologic Disorder: No Hx Substance Use: No - Surgical History Hx Hysterectomy: Yes Hx Orthopedic Surgery: Yes - Anesthesia Hx Anesthesia: Yes - Suicidal Assessment Feels Threatened In Home Enviroment: No Family/Social History Smoking Status: Former Smoker Hx Alcohol Use: No Hx Substance Use: No Allergies/Home Meds Allergies/Adverse Reactions: Allergies No Known Allergies Allergy (Verified 03/30/18 15:38) Home Medications: Home Meds Medication Instructions Recorded Confirmed Aspirin [Aspir 81] 81 mg PO DAILY 11/16/12 05/03/18 Cholecalciferol [Vitamin D 1000 IU] 2,000 iu PO DAILY 11/16/12 05/03/18 MetFORMIN [glucoPHAGE] 1,000 mg PO DAILY 10/12/17 05/03/18 Zonisamide [Zonegran] 300 mg PO HS 10/12/17 05/03/18 SITagliptin [Januvia] 100 mg PO DAILY 01/18/18 05/03/18 Zonisamide [Zonegran] 200 mg PO QAM 01/18/18 05/03/18 Acetaminophen [Tylenol 325mg tab] 650 mg PO Q4 PRN 04/19/18 05/03/18 Atorvastatin [Lipitor] 40 mg PO HS 04/19/18 05/03/18 Calcium Carbonate-Vitamin 1 tab PO DAILY 04/19/18 04/19/18 D(500-200mg) Levomefolate Calcium 7.5 mg PO BID 04/19/18 05/03/18 [l-Methylfolate] Polyethylene Glycol 3350 [Miralax] 17 gm PO DAILY PRN 04/19/18 05/03/18 Tramadol HCl [Ultram] 50 mg PO Q4 PRN 04/19/18 05/03/18 Medical Decision Making ED Course and Treatment: 05/10/18 16:54 Impression: 67 year old female who presents to the Emergency department for Differential Diagnosis included but are not limited to: Plan: -- Labs -- CTA of head/Neck -- CT of head -- EKG -- X-Ray of chest -- IV fluids -- O2 via Nasal Cannula -- Urinalysis -- Reassess and disposition Prior Visits: Notes and results from previous visits were reviewed. Patient was last seen in the emergency department on Progress Notes: 05/10/18 16:[address] Rae, who wants to do TPA on patient. - Lab Interpretations Lab Results: PT 12.0 SECONDS (9.4-12.5) 05/10/18 16:05 INR 1.08 05/10/18 16:05 APTT 28.5 Seconds (26.9-38.3) 05/10/18 16:05 Total Bilirubin 0.5 mg/dL (0.2-1.3) 05/10/18 16:05 AST 33 U/L (14-36) 05/10/18 16:05 ALT 22 U/L (7-56) 05/10/18 16:05 Alkaline Phosphatase 88 U/L (38-126) 05/10/18 16:05 Total Protein 8.0 g/dL (5.8-8.3) 05/10/18 16:05 Albumin 4.4 g/dL (3.0-4.8) 05/10/18 16:05 Globulin 3.7 gm/dL 05/10/18 16:05 Albumin/Globulin Ratio 1.2 (1.1-1.8) 05/10/18 16:05 - RAD Interpretation Radiology Orders: 05/10/18 16:14 HEAD W/O (CODE STROKE) [CT] Stat CHEST PORTABLE [RAD] Stat - Medication Orders Current Medication Orders: Sodium Chloride (Sodium Chloride 0.9%) 1,000 mls @ 100 mls/hr IV .Q10H [facility] Disposition/Present on Arrival - Present on Arrival History of DVT/PE: No History of Uncontrolled Diabetes: No Urinary Catheter: No History of Decub. Ulcer: No History Surgical Site Infection Following: None - Disposition
[2018-05-10 17:21] LABS: B-TYPE NATRIURETIC PEPTIDE 1710 pg/mL (0-450); TROPONIN I 0.16 ng/mL
[2018-05-10 19:08] LABS: PH,URINE 6.5 (4.7-8.0); URINE BILIRUBIN NEGATIVE (NEGATIVE); URINE BLOOD TRACE-INTACT (NEGATIVE); URINE GLUCOSE (UA) NEGATIVE (NEGATIVE); URINE LEUKOCYTE ESTERASE NEGATIVE Leu/uL (NEGATIVE); URINE PROTEIN 100 mg/dL (<30 mg/dL); URINE UROBILINOGEN 0.2 E.U./dL (<1 E.U./dL)
[2018-05-10 19:09] LABS: URINE APPEARANCE CLEAR (CLEAR); URINE COLOR YELLOW (YELLOW)
[2018-05-10 19:19] LABS: URINE EPITHELIAL CELLS 0 - 2 /hpf (0-5)
[2018-05-10 21:35] LABS: ARTERIAL BLOOD GAS HCO3 35.2 mmol/L (21-28); ARTERIAL BLOOD GAS O2 SAT 99.6 % (95-98); ARTERIAL BLOOD GAS PCO2 146 mm/Hg (35-45); ARTERIAL BLOOD GAS PH 6.99 (7.35-7.45); ARTERIAL BLOOD GAS TCO2 39.7 mmol.L (22-28)
--- NOTE | 2018-05-10 22:23 | CP.PCM.PN ---
Subjective - Date & Time of Evaluation Date of Evaluation: 05/10/18 Time of Evaluation: 21:05 - Subjective Subjective: Called for ICU consult evaluation on Mrs. Brigette Hyde. Pt. is comatose and i was not able to wake her up. Told family that pt. needs to be intubated right away. Family said pt. is DNR/DNI. Pt. was put on NRB . Ordered stat EKG and ABG. Dr. Rae from neurology reached by Dr. Guzmán, who recommended repeat CTH stat. ABG confirmed Hypercapneic respiratory failure. Family still deciding on code status. Per family last time she was awake around 1730. Objective - Vital Signs/Intake and Output Vital Signs (last 24 hours): Temp Pulse Resp BP Pulse Ox 98.8 F 104 H 22 151/91 H 95 05/10/18 16:25 05/10/18 19:00 05/10/18 19:00 05/10/18 19:00 05/10/18 19:00 - Medications Medications: Current Medications Sodium Chloride (Sodium Chloride 0.9%) 1,000 mls @ 100 mls/hr IV .Q10H MAR Last Admin: 05/10/18 17:07 Dose: 100 mls/hr - Labs Labs: 05/10/18 16:05 05/10/18 16:05 PT 12.0 SECONDS (9.4-12.5) 05/10/18 16:05 INR 1.08 05/10/18 16:05 APTT 28.5 Seconds (26.9-38.3) 05/10/18 16:05
[2018-05-10] MEDS ORDERED: Albuterol 0.083% Inhal Sol (2.5 mg/3 mL) UD INH PRN (23:23)
[2018-05-10] MEDS ORDERED: HYDROmorphone 2 mg/ml ISec IVP PRN ×2 (23:23)
[2018-05-10] MEDS ORDERED: Morphine 4 mg/ml ISec IVP PRN (23:23)
[2018-05-10] MEDS ORDERED: Morphine 2 mg/ml ISec IVP PRN (23:23)
--- NOTE | 2018-05-10 23:49 | CP.PCM.CON ---
<ZhengBrooksRamirez - Last Filed: 05/10/18 23:50> History of Present Illness - History of Present Illness History of Present Illness: ICU Consultation Requesting Physician: Dr. Sharma HPI: Mrs. Hyde is a 67 year old female with a past medical history significant for CIDP, DM2, HLD and history of breast cancer s/p lumpectomy who originally presented to the [facility] ED with right sided facial droop. ICU consultation was requested for new mental status changes. According to chart review, patient p resenting neurological deficits had resolved prior to tPA administration and thus this medication was not given. At approximately 2044, ICU team was called to evaluate the patient in the ED as the patients mental status had declined and the patient was no longer responsive to verbal, tactile or painful stimuli. ICU evaluated the patient in the ED at approximately 2099 and recommended that the patient be intubated as the patient was not protecting her airway. Patients family, including patient's POA, were present at bedside and stated that the patient had her wishes to be DNR/DNI in her advanced directives. For clarity on patients wishes, family requested that they go to get the advanced directive form from their home before any further decisions were made. During this time, the neurologist who was contacted upon admission was notified of the new mental status changes and recommended obtaining a repeat CT Head. When the patients family returned with their documents, it was confirmed that the patient had wished to not be intubated nor did she want cardiac resuscitation. After multiple discussions amongst themselves and with ICU team with all pertinent information regarding the patients health status, they decided that they would honor patients DNR/DNI status and ultimately decided that they would make the patient comfort care. PMH: As stated above PSH: Rotator Cuff Surgery, GUY, B/L Carpal Tunnel Surgery, Right Breast Lumpectomy, Multiple Disc Herniation Repairs Family History: Unobtainable Social History: Per chart review, denies any tobacco, alcohol or illicit drug abuse Allergies: NKDA Home Medications: Reviewed; As per MAR Review of Systems - Review of Systems Systems not reviewed;Unavailable: Altered Mental Status Past Patient History - Infectious Disease Hx of Infectious Diseases: None - Past Social History Smoking Status: Former Smoker - CARDIAC Hx Cardiac Disorders: No - PULMONARY Hx Asthma: Yes Hx Chronic Obstructive Pulmonary Disease (COPD): Yes Hx Emphysema: Yes - NEUROLOGICAL Hx Neurological Disorder: No - HEENT Hx HEENT Problems: No - RENAL Hx Chronic Kidney Disease: No - ENDOCRINE/METABOLIC Hx Endocrine Disorders: Yes Hx Diabetes Mellitus Type 1: Yes - HEMATOLOGICAL/ONCOLOGICAL Hx Blood Disorders: Yes Hx Cancer: Yes (breast ca) - INTEGUMENTARY Hx Dermatological Problems: No - MUSCULOSKELETAL/RHEUMATOLOGICAL Hx Falls: Yes Other/Comment: BILATER TORN SHOULDER ROTATOR CUFFS, WITH SURGERY, AND RETORN. 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 - GASTROINTESTINAL Hx Gastrointestinal Disorders: No - GENITOURINARY/GYNECOLOGICAL Hx Genitourinary Disorders: No - PSYCHIATRIC Hx Psychophysiologic Disorder: No Hx Substance Use: No - SURGICAL HISTORY Hx Hysterectomy: Yes Hx Orthopedic Surgery: Yes - ANESTHESIA Hx Anesthesia: Yes Meds Allergies/Adverse Reactions: Allergies Allergy/AdvReac Type Severity Reaction Status Date / Time No Known Allergies Allergy Verified 03/30/18 15:38 - Medications Medications: Current Medications Acetaminophen (Tylenol 650 Mg Supp) 650 mg MO Q4 PRN PRN Reason: Pain, Mild (1-3) Albuterol Sulfate (Albuterol 0.083% Inhal Annmarie (2.5 Mg/3 Ml) Ud) 2.5 mg INH [id number] PRN PRN Reason: Wheezing Hydromorphone HCl (Dilaudid) 2 mg IVP Q4 PRN PRN Reason: Pain, severe (8-10) Sodium Chloride (Sodium Chloride 0.9%) 1,000 mls @ 100 mls/hr IV .Q10H MAR Last Admin: 05/10/18 17:07 Dose: 100 mls/hr Lorazepam (Ativan) 1 mg IVP Q4 MAR; Protocol Morphine Sulfate (Morphine) 2 mg IVP Q4 PRN PRN Reason: Dyspnea Morphine Sulfate (Morphine) 4 mg IVP Q4 PRN PRN Reason: Pain, moderate (4-7) Scopolamine (Transderm-Scop) 1 patch TD Q72 MAR Physical Exam - Constitutional Appears: In Acute Distress - Head Exam Head Exam: ATRAUMATIC - Eye Exam Eye Exam: Normal appearance Pupil Exam: NORMAL ACCOMODATION, PERRL - Respiratory Exam Respiratory Exam: Accessory Muscle Use - Cardiovascular Exam Cardiovascular Exam: REGULAR RHYTHM - GI/Abdominal Exam GI & Abdominal Exam: Normal Bowel Sounds - Expanded Neurological Exam Expanded Coma Scale Eye Opening: None Coma Scale Motor Response: None Coma Scale Verbal: None Coma Scale Total: 3 Results - Vital Signs Recent Vital Signs: Last Vital Signs Temp 98.8 F 05/10/18 16:25 Pulse 104 H 05/10/18 19:00 Resp 22 05/10/18 19:00 BP 151/91 H 05/10/18 19:00 Pulse Ox 95 05/10/18 19:00 - Labs Result Diagrams: 05/10/18 16:05 05/10/18 16:05 Labs: Laboratory Results - last 24 hr 05/10/18 05/10/18 05/10/18 16:05 16:05 16:05 WBC 13.3 H D RBC 5.12 Hgb 14.6 Hct 45.0 MCV 87.9 D MCH 28.5 MCHC 32.4 RDW 13.9 Plt Count 258 MPV 10.2 Neut % (Auto) 84.7 H Lymph % (Auto) 7.6 L Jackson % (Auto) 7.7 H Eos % (Auto) 0.0 L Baso % (Auto) 0.0 Lymph # (Auto) 1.0 L Jackson # (Auto) 1.0 H Eos # (Auto) 0.0 Baso # (Auto) 0.00 Absolute Neuts (auto) 11.27 H PT 12.0 INR 1.08 APTT 28.5 pCO2 pO2 HCO3 ABG pH ABG Total CO2 ABG O2 Saturation ABG Base Excess ABG Potassium Glucose Lactate FiO2 Crit Value Called To Crit Value Called By Blood Gas Notified Time Sodium 137 Potassium 5.0 Chloride 97 L Carbon Dioxide 33 Anion Gap 12 BUN 33 H Creatinine 0.7 Est GFR ( Amer) > 60 Est GFR (Non-Af Amer) > 60 Random Glucose 194 H Hemoglobin A1c Calcium 10.0 Total Bilirubin 0.5 AST 33 ALT 22 Alkaline Phosphatase 88 Total Creatine Kinase Troponin I 0.16 H* D NT-Pro-B Natriuret Pep 1710 H Total Protein 8.0 Albumin 4.4 Globulin 3.7 Albumin/Globulin Ratio 1.2 Triglycerides 122 Cholesterol 130 LDL Cholesterol Direct 48 HDL Cholesterol 56 Arterial Blood Potassium Urine Color Urine Appearance Urine pH Ur Specific [place] Urine Protein Urine Glucose (UA) Urine Ketones Urine Blood Urine Nitrate Urine Bilirubin Urine Urobilinogen Ur Leukocyte Esterase Urine RBC Urine WBC Ur Epithelial Cells Blood Type Antibody Screen BBK History Checked 05/10/18 05/10/18 05/10/18 16:05 16:05 18:00 WBC RBC Hgb Hct MCV MCH MCHC RDW Plt Count MPV Neut % (Auto) Lymph % (Auto) Jackson % (Auto) Eos % (Auto) Baso % (Auto) Lymph # (Auto) Jackson # (Auto) Eos # (Auto) Baso # (Auto) Absolute Neuts (auto) PT INR APTT pCO2 pO2 HCO3 ABG pH ABG Total CO2 ABG O2 Saturation ABG Base Excess ABG Potassium Glucose Lactate FiO2 Crit Value Called To Crit Value Called By Blood Gas Notified Time Sodium Potassium Chloride Carbon Dioxide Anion Gap BUN Creatinine Est GFR ( Amer) Est GFR (Non-Af Amer) Random Glucose Hemoglobin A1c 7.5 H Calcium Total Bilirubin AST ALT Alkaline Phosphatase Total Creatine Kinase 43 Troponin I NT-Pro-B Natriuret Pep Total Protein Albumin Globulin Albumin/Globulin Ratio Triglycerides Cholesterol LDL Cholesterol Direct HDL Cholesterol Arterial Blood Potassium Urine Color Urine Appearance Urine pH Ur Specific [place] Urine Protein Urine Glucose (UA) Urine Ketones Urine Blood Urine Nitrate Urine Bilirubin Urine Urobilinogen Ur Leukocyte Esterase Urine RBC Urine WBC Ur Epithelial Cells Blood Type O POSITIVE Antibody Screen Negative BBK History Checked Patient has bt 05/10/18 05/10/18 18:48 21:25 WBC RBC Hgb Hct MCV MCH MCHC RDW Plt Count MPV Neut % (Auto) Lymph % (Auto) Jackson % (Auto) Eos % (Auto) Baso % (Auto) Lymph # (Auto) Jackson # (Auto) Eos # (Auto) Baso # (Auto) Absolute Neuts (auto) PT INR APTT pCO2 146 H* pO2 148.0 H HCO3 35.2 H ABG pH 6.99 L* ABG Total CO2 39.7 H ABG O2 Saturation 99.6 H ABG Base Excess -0.6 ABG Potassium 4.6 Glucose 251 H Lactate 0.5 L FiO2 100.0 Crit Value Called To Md han Crit Value Called By Robert Blood Gas Notified Time 2133 Sodium 140.0 Potassium Chloride 103.0 Carbon Dioxide Anion Gap BUN Creatinine Est GFR ( Amer) Est GFR (Non-Af Amer) Random Glucose Hemoglobin A1c Calcium Total Bilirubin AST ALT Alkaline Phosphatase Total Creatine Kinase Troponin I NT-Pro-B Natriuret Pep Total Protein Albumin Globulin Albumin/Globulin Ratio Triglycerides Cholesterol LDL Cholesterol Direct HDL Cholesterol Arterial Blood Potassium 4.6 Urine Color Yellow Urine Appearance Clear Urine pH 6.5 Ur Specific [place] 1.020 Urine Protein 100 H Urine Glucose (UA) Negative Urine Ketones Negative Urine Blood Trace-intact H Urine Nitrate Negative Urine Bilirubin Negative Urine Urobilinogen 0.2 Ur Leukocyte Esterase Negative Urine RBC 1 - 3 H Urine WBC None Ur Epithelial Cells 0 - 2 Blood Type Antibody Screen BBK History Checked Assessment & Plan - Assessment and Plan (Free Text) Assessment: 67 year old female with a past medical history significant for CIDP, DM2, HLD and history of breast cancer s/p lumpectomy who originally presented to the [facility] ED with right sided facial droop. ICU consultation was requested for new mental status changes. Plan: -ICU care no longer indicated -Continue with comfort care measures -Reconsult as indicated Patient seen and case discussed with attending, Dr. Gatica. Ramirez Zheng PGY2 - Date & Time Date: 05/11/18 Time: 00:18 <Jay Gatica - Last Filed: 05/11/18 06:24> Meds - Medications Medications: Current Medications Acetaminophen (Tylenol 650 Mg Supp) 650 mg MO Q4 PRN PRN Reason: Pain, Mild (1-3) Albuterol Sulfate (Albuterol 0.083% Inhal Annmarie (2.5 Mg/3 Ml) Ud) 2.5 mg INH [id number] PRN PRN Reason: Wheezing Hydromorphone HCl (Dilaudid) 2 mg IVP Q4 PRN PRN Reason: Pain, severe (8-10) Sodium Chloride (Sodium Chloride 0.9%) 1,000 mls @ 100 mls/hr IV .Q10H MAR Last Admin: 05/10/18 17:07 Dose: 100 mls/hr Lorazepam (Ativan) 1 mg IVP Q4 MAR; Protocol Last Admin: 05/11/18 05:05 Dose: Not Given Morphine Sulfate (Morphine) 2 mg IVP Q4 PRN PRN Reason: Dyspnea Morphine Sulfate (Morphine) 4 mg IVP Q4 PRN PRN Reason: Pain, moderate (4-7) Scopolamine (Transderm-Scop) 1 patch TD Q72 MAR Results - Vital Signs Recent Vital Signs: Last Vital Signs Temp 98.8 F 05/10/18 16:25 Pulse 104 H 05/10/18 19:00 Resp 16 05/11/18 02:51 BP 151/91 H 05/10/18 19:00 Pulse Ox 95 05/10/18 19:00 - Labs Result Diagrams: 05/10/18 16:05 05/10/18 16:05 Labs: Laboratory Results - last 24 hr 05/10/18 05/10/18 05/10/18 16:05 16:05 16:05 WBC 13.3 H D RBC 5.12 Hgb 14.6 Hct 45.0 MCV 87.9 D MCH 28.5 MCHC 32.4 RDW 13.9 Plt Count 258 MPV 10.2 Neut % (Auto) 84.7 H Lymph % (Auto) 7.6 L Jackson % (Auto) 7.7 H Eos % (Auto) 0.0 L Baso % (Auto) 0.0 Lymph # (Auto) 1.0 L Jackson # (Auto) 1.0 H Eos # (Auto) 0.0 Baso # (Auto) 0.00 Absolute Neuts (auto) 11.27 H PT 12.0 INR 1.08 APTT 28.5 pCO2 pO2 HCO3 ABG pH ABG Total CO2 ABG O2 Saturation ABG Base Excess ABG Potassium Glucose Lactate FiO2 Crit Value Called To Crit Value Called By Blood Gas Notified Time Sodium 137 Potassium 5.0 Chloride 97 L Carbon Dioxide 33 Anion Gap 12 BUN 33 H Creatinine 0.7 Est GFR ( Amer) > 60 Est GFR (Non-Af Amer) > 60 POC Glucose (mg/dL) Random Glucose 194 H Hemoglobin A1c Calcium 10.0 Total Bilirubin 0.5 AST 33 ALT 22 Alkaline Phosphatase 88 Total Creatine Kinase Troponin I 0.16 H* D NT-Pro-B Natriuret Pep 1710 H Total Protein 8.0 Albumin 4.4 Globulin 3.7 Albumin/Globulin Ratio 1.2 Triglycerides 122 Cholesterol 130 LDL Cholesterol Direct 48 HDL Cholesterol 56 Arterial Blood Potassium Urine Color Urine Appearance Urine pH Ur Specific [place] Urine Protein Urine Glucose (UA) Urine Ketones Urine Blood Urine Nitrate Urine Bilirubin Urine Urobilinogen Ur Leukocyte Esterase Urine RBC Urine WBC Ur Epithelial Cells Blood Type Antibody Screen BBK History Checked 05/10/18 05/10/18 05/10/18 16:05 16:05 18:00 WBC RBC Hgb Hct MCV MCH MCHC RDW Plt Count MPV Neut % (Auto) Lymph % (Auto) Jackson % (Auto) Eos % (Auto) Baso % (Auto) Lymph # (Auto) Jackson # (Auto) Eos # (Auto) Baso # (Auto) Absolute Neuts (auto) PT INR APTT pCO2 pO2 HCO3 ABG pH ABG Total CO2 ABG O2 Saturation ABG Base Excess ABG Potassium Glucose Lactate FiO2 Crit Value Called To Crit Value Called By Blood Gas Notified Time Sodium Potassium Chloride Carbon Dioxide Anion Gap BUN Creatinine Est GFR ( Amer) Est GFR (Non-Af Amer) POC Glucose (mg/dL) Random Glucose Hemoglobin A1c 7.5 H Calcium Total Bilirubin AST ALT Alkaline Phosphatase Total Creatine Kinase 43 Troponin I NT-Pro-B Natriuret Pep Total Protein Albumin Globulin Albumin/Globulin Ratio Triglycerides Cholesterol LDL Cholesterol Direct HDL Cholesterol Arterial Blood Potassium Urine Color Urine Appearance Urine pH Ur Specific [place] Urine Protein Urine Glucose (UA) Urine Ketones Urine Blood Urine Nitrate Urine Bilirubin Urine Urobilinogen Ur Leukocyte Esterase Urine RBC Urine WBC Ur Epithelial Cells Blood Type O POSITIVE Antibody Screen Negative BBK History Checked Patient has bt 05/10/18 05/10/18 05/10/18 18:48 21:04 21:25 WBC RBC Hgb Hct MCV MCH MCHC RDW Plt Count MPV Neut % (Auto) Lymph % (Auto) Jackson % (Auto) Eos % (Auto) Baso % (Auto) Lymph # (Auto) Jackson # (Auto) Eos # (Auto) Baso # (Auto) Absolute Neuts (auto) PT INR APTT pCO2 146 H* pO2 148.0 H HCO3 35.2 H ABG pH 6.99 L* ABG Total CO2 39.7 H ABG O2 Saturation 99.6 H ABG Base Excess -0.6 ABG Potassium 4.6 Glucose 251 H Lactate 0.5 L FiO2 100.0 Crit Value Called To Md han Crit Value Called By Robert Blood Gas Notified Time 2133 Sodium 140.0 Potassium Chloride 103.0 Carbon Dioxide Anion Gap BUN Creatinine Est GFR ( Amer) Est GFR (Non-Af Amer) POC Glucose (mg/dL) 237 H Random Glucose Hemoglobin A1c Calcium Total Bilirubin AST ALT Alkaline Phosphatase Total Creatine Kinase Troponin I NT-Pro-B Natriuret Pep Total Protein Albumin Globulin Albumin/Globulin Ratio Triglycerides Cholesterol LDL Cholesterol Direct HDL Cholesterol Arterial Blood Potassium 4.6 Urine Color Yellow Urine Appearance Clear Urine pH 6.5 Ur Specific [place] 1.020 Urine Protein 100 H Urine Glucose (UA) Negative Urine Ketones Negative Urine Blood Trace-intact H Urine Nitrate Negative Urine Bilirubin Negative Urine Urobilinogen 0.2 Ur Leukocyte Esterase Negative Urine RBC 1 - 3 H Urine WBC None Ur Epithelial Cells 0 - 2 Blood Type Antibody Screen BBK History Checked Attending/Attestation - Attestation I have personally seen and examined this patient.: Yes I have fully participated in the care of the patient.: Yes I have reviewed all pertinent clinical information: Yes
--- NOTE | 2018-05-11 00:29 | CP.PCM.PN ---
Subjective - Date & Time of Evaluation Date of Evaluation: 05/11/18 Time of Evaluation: 00:21 - Subjective Subjective: After multiple discussions with all pertinent medical information and alternatives provided, patient's family decided that they would like to pursue comfort care measures at this time. Patients attending physician, Dr. Khurram Sharma was notified of this decision immediately and requested that comfort care measures be put in place. Patients status was changed from telemetry to med/surg and all comfort care measures were put in place as ordered. Ramirez Zheng PGY2 Objective - Vital Signs/Intake and Output Vital Signs (last 24 hours): Temp Pulse Resp BP Pulse Ox 98.8 F 104 H 22 151/91 H 95 05/10/18 16:25 05/10/18 19:00 05/10/18 19:00 05/10/18 19:00 05/10/18 19:00 - Medications Medications: Current Medications Acetaminophen (Tylenol 650 Mg Supp) 650 mg HI Q4 PRN PRN Reason: Pain, Mild (1-3) Albuterol Sulfate (Albuterol 0.083% Inhal Annmarie (2.5 Mg/3 Ml) Ud) 2.5 mg INH [id number] PRN PRN Reason: Wheezing Hydromorphone HCl (Dilaudid) 2 mg IVP Q4 PRN PRN Reason: Pain, severe (8-10) Sodium Chloride (Sodium Chloride 0.9%) 1,000 mls @ 100 mls/hr IV .Q10H MAR Last Admin: 05/10/18 17:07 Dose: 100 mls/hr Lorazepam (Ativan) 1 mg IVP Q4 MAR; Protocol Morphine Sulfate (Morphine) 2 mg IVP Q4 PRN PRN Reason: Dyspnea Morphine Sulfate (Morphine) 4 mg IVP Q4 PRN PRN Reason: Pain, moderate (4-7) Scopolamine (Transderm-Scop) 1 patch TD Q72 MAR - Labs Labs: 05/10/18 16:05 05/10/18 16:05 PT 12.0 SECONDS (9.4-12.5) 05/10/18 16:05 INR 1.08 05/10/18 16:05 APTT 28.5 Seconds (26.9-38.3) 05/10/18 16:05
[2018-05-11 04:56] VITALS: BMI 29.0
[2018-05-11 05:25] VITALS: RESP 16
--- NOTE | 2018-05-11 08:14 | CARD ---
APPROVED REPORT Date of service: 05/10/2018 EKG Measurement Heart [id number] <Conclusion> Sinus tachycardia Inferior infarct, age undetermined Anterior infarct, age undetermined Abnormal ECG
--- NOTE | 2018-05-11 09:10 | CT ---
Date of service: 05/10/2018 PROCEDURE: CT Angiography of the Brain and Neck. HISTORY: right facial droop COMPARISON: None available. TECHNIQUE: CT angiography of the head and neck was performed following intravenous contrast administration. Coronal and sagittal maximum intensity projection reformatted images were generated. Contrast Dose: Omnipaque 350, 131 cc Radiation dose: Total exam DLP = 550.07 mGy-cm. This CT exam was performed using one or more of the following dose reduction techniques: Automated exposure control, adjustment of the mA and/or kV according to patient size, and/or use of iterative reconstruction technique. FINDINGS: INTERNAL CEREBRAL ARTERIES: Trace partially calcified atherosclerosis bilateral cavernous segments without significant stenosis identified. The skull base, petrous, and supraclinoid segments are bilaterally widely patent. ANTERIOR CEREBRAL ARTERIES: Unremarkable. A1 and A2 segments are widely patent. Smaller distal branches unremarkable, as visualized. MIDDLE CEREBRAL ARTERIES: Unremarkable. M1 and M2 segments are widely patent. Perisylvian branches grossly symmetric. POSTERIOR CIRCULATION: Basilar Artery: Unremarkable. Distal Vertebral Arteries: Balance vertebrobasilar circulation identified. Posterior Cerebral Arteries: Unremarkable. Posterior Inferior Cerebellar Arteries: Unremarkable. NECK CTA: Common Carotid arteries: The bilateral common carotid appear widely patent from their origins to their bifurcations with no significant stenosis appreciated. No evidence to suggest common carotid artery dissection. Internal Carotid arteries: Limited atherosclerotic plaques identified at the bilateral proximal cervical internal carotid arteries without significant stenosis resulting. No definite dissection pattern bilaterally. External Carotid arteries: Appear unremarkable bilaterally. Vertebral arteries: The bilateral vertebral arteries appear normal in caliber from their origins to their distal cervical segments. No significant stenosis or definite pattern of dissection. ANEURYSM/ VASCULAR MALFORMATIONS: None. OTHER FINDINGS: None. IMPRESSION: Trace atherosclerosis bilateral cavernous ICA and proximal cervical bilateral ICA without significant stenosis appreciated. No large vessel occlusion or significant stenosis appreciated in CT angiography of the head and neck. Concordant preliminary report from [facility], 05/10/2018 6:22 p.m..
[2018-05-11 10:06] VITALS: BP 103/60; PULSE 95; TEMP 97.8; O2SAT 96
--- NOTE | 2018-05-11 11:55 | CP.PCM.CON ---
History of Present Illness - History of Present Illness History of Present Illness: Palliative consult requested by Dr Stephany Casas Reason: Goals of care 67 year old female with history of who presented with weakness, headache and right facial droop CT on did not show acute intracranial pathology. MRA trace atherosclerosis in bilateral cavernous ICA without significant stenosis. No large significant vessel occlusion. PMHx: CIDP, DM, peripheral neuropathy, spinal stenosis, bilateral torn rotator cuffs PSHx: bilateral rotator cuff repair Social History: Former smoker, no alcohol or drug use. Family History: Non contributory Advance Care Planning: The patient has an Advanced Directive and is DNR/DNI Review of Systems: As per HPI, patient is obtunded non verbal unable to obtain Past Patient History - Infectious Disease Hx of Infectious Diseases: None - Past Social History Smoking Status: Never Smoked - CARDIAC Hx Cardiac Disorders: No - PULMONARY Hx Asthma: Yes Hx Chronic Obstructive Pulmonary Disease (COPD): Yes Hx Emphysema: Yes - NEUROLOGICAL Hx Neurological Disorder: No - HEENT Hx HEENT Problems: No - RENAL Hx Chronic Kidney Disease: No - ENDOCRINE/METABOLIC Hx Endocrine Disorders: Yes Hx Diabetes Mellitus Type 1: Yes - HEMATOLOGICAL/ONCOLOGICAL Hx Blood Disorders: Yes Hx Cancer: Yes (breast ca) - INTEGUMENTARY Hx Dermatological Problems: No - MUSCULOSKELETAL/RHEUMATOLOGICAL Hx Falls: Yes Other/Comment: BILATER TORN SHOULDER ROTATOR CUFFS, WITH SURGERY, AND RETORN. 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 - GASTROINTESTINAL Hx Gastrointestinal Disorders: No - GENITOURINARY/GYNECOLOGICAL Hx Genitourinary Disorders: No - PSYCHIATRIC Hx Psychophysiologic Disorder: No Hx Substance Use: No - SURGICAL HISTORY Hx Hysterectomy: Yes Hx Orthopedic Surgery: Yes - ANESTHESIA Hx Anesthesia: Yes Meds Allergies/Adverse Reactions: Allergies Allergy/AdvReac Type Severity Reaction Status Date / Time No Known Allergies Allergy Verified 03/30/18 15:38 - Medications Medications: Current Medications Acetaminophen (Tylenol 650 Mg Supp) 650 mg [place] Q4 PRN PRN Reason: Pain, Mild (1-3) Albuterol Sulfate (Albuterol 0.083% Inhal Annmarie (2.5 Mg/3 Ml) Ud) 2.5 mg INH [id number] PRN PRN Reason: Wheezing Hydromorphone HCl (Dilaudid) 2 mg IVP Q4 PRN PRN Reason: Pain, severe (8-10) Sodium Chloride (Sodium Chloride 0.9%) 1,000 mls @ 100 mls/hr IV .Q10H [facility] Last Admin: 05/10/18 17:07 Dose: 100 mls/hr Lorazepam (Ativan) 1 mg IVP Q4 [facility]; Protocol Last Admin: 05/11/18 08:00 Dose: Not Given Morphine Sulfate (Morphine) 2 mg IVP Q4 PRN PRN Reason: Dyspnea Morphine Sulfate (Morphine) 4 mg IVP Q4 PRN PRN Reason: Pain, moderate (4-7) Scopolamine (Transderm-Scop) 1 patch TD Q72 [facility] Physical Exam - Constitutional Appears: Chronically Ill - Head Exam Head Exam: NORMOCEPHALIC - Eye Exam Additional comments: left pupil fixed, right pupil minimally reactive - ENT Exam ENT Exam: Mucous Membranes Moist - Neck Exam Neck exam: Positive for: Normal Inspection - Respiratory Exam Respiratory Exam: Decreased Breath Sounds, Rhonchi - Cardiovascular Exam Cardiovascular Exam: REGULAR RHYTHM, +S1, +S2 - GI/Abdominal Exam GI & Abdominal Exam: Hypoactive Bowel Sounds, Soft - Extremities Exam Additional comments: PVD of lower extremities > cool, hands cyanotic - Neurological Exam Additional comments: unresponsive - Skin Skin Exam: Dry, Pallor - Additional Findings Additional findings: palliative performance scale rating 20 % Results - Vital Signs Recent Vital Signs: Last Vital Signs Temp 97.8 F 05/11/18 10:04 Pulse 95 H 05/11/18 10:04 Resp 16 05/11/18 10:04 BP 103/60 05/11/18 10:04 Pulse Ox 96 05/11/18 10:04 - Labs Result Diagrams: 05/10/18 16:05 05/10/18 16:05 Labs: Laboratory Results - last 24 hr 05/10/18 05/10/18 05/10/18 16:05 16:05 16:05 WBC 13.3 H D RBC 5.12 Hgb 14.6 Hct 45.0 MCV 87.9 D MCH 28.5 MCHC 32.4 RDW 13.9 Plt Count 258 MPV 10.2 Neut % (Auto) 84.7 H Lymph % (Auto) 7.6 L Nolan % (Auto) 7.7 H Eos % (Auto) 0.0 L Baso % (Auto) 0.0 Lymph # (Auto) 1.0 L Nolan # (Auto) 1.0 H Eos # (Auto) 0.0 Baso # (Auto) 0.00 Absolute Neuts (auto) 11.27 H PT 12.0 INR 1.08 APTT 28.5 pCO2 pO2 HCO3 ABG pH ABG Total CO2 ABG O2 Saturation ABG Base Excess ABG Potassium Glucose Lactate FiO2 Crit Value Called To Crit Value Called By Blood Gas Notified Time Sodium 137 Potassium 5.0 Chloride 97 L Carbon Dioxide 33 Anion Gap 12 BUN 33 H Creatinine 0.7 Est GFR ( Amer) > 60 Est GFR (Non-Af Amer) > 60 POC Glucose (mg/dL) Random Glucose 194 H Hemoglobin A1c Calcium 10.0 Total Bilirubin 0.5 AST 33 ALT 22 Alkaline Phosphatase 88 Total Creatine Kinase Troponin I 0.16 H* D NT-Pro-B Natriuret Pep 1710 H Total Protein 8.0 Albumin 4.4 Globulin 3.7 Albumin/Globulin Ratio 1.2 Triglycerides 122 Cholesterol 130 LDL Cholesterol Direct 48 HDL Cholesterol 56 Arterial Blood Potassium Urine Color Urine Appearance Urine pH Ur Specific [place] Urine Protein Urine Glucose (UA) Urine Ketones Urine Blood Urine Nitrate Urine Bilirubin Urine Urobilinogen Ur Leukocyte Esterase Urine RBC Urine WBC Ur Epithelial Cells Blood Type Antibody Screen BBK History Checked 05/10/18 05/10/18 05/10/18 16:05 16:05 18:00 WBC RBC Hgb Hct MCV MCH MCHC RDW Plt Count MPV Neut % (Auto) Lymph % (Auto) Nolan % (Auto) Eos % (Auto) Baso % (Auto) Lymph # (Auto) Nolan # (Auto) Eos # (Auto) Baso # (Auto) Absolute Neuts (auto) PT INR APTT pCO2 pO2 HCO3 ABG pH ABG Total CO2 ABG O2 Saturation ABG Base Excess ABG Potassium Glucose Lactate FiO2 Crit Value Called To Crit Value Called By Blood Gas Notified Time Sodium Potassium Chloride Carbon Dioxide Anion Gap BUN Creatinine Est GFR ( Amer) Est GFR (Non-Af Amer) POC Glucose (mg/dL) Random Glucose Hemoglobin A1c 7.5 H Calcium Total Bilirubin AST ALT Alkaline Phosphatase Total Creatine Kinase 43 Troponin I NT-Pro-B Natriuret Pep Total Protein Albumin Globulin Albumin/Globulin Ratio Triglycerides Cholesterol LDL Cholesterol Direct HDL Cholesterol Arterial Blood Potassium Urine Color Urine Appearance Urine pH Ur Specific [place] Urine Protein Urine Glucose (UA) Urine Ketones Urine Blood Urine Nitrate Urine Bilirubin Urine Urobilinogen Ur Leukocyte Esterase Urine RBC Urine WBC Ur Epithelial Cells Blood Type O POSITIVE Antibody Screen Negative BBK History Checked Patient has bt 05/10/18 05/10/18 05/10/18 18:48 21:04 21:25 WBC RBC Hgb Hct MCV MCH MCHC RDW Plt Count MPV Neut % (Auto) Lymph % (Auto) Nolan % (Auto) Eos % (Auto) Baso % (Auto) Lymph # (Auto) Nolan # (Auto) Eos # (Auto) Baso # (Auto) Absolute Neuts (auto) PT INR APTT pCO2 146 H* pO2 148.0 H HCO3 35.2 H ABG pH 6.99 L* ABG Total CO2 39.7 H ABG O2 Saturation 99.6 H ABG Base Excess -0.6 ABG Potassium 4.6 Glucose 251 H Lactate 0.5 L FiO2 100.0 Crit Value Called To Md han Crit Value Called By Robert Blood Gas Notified Time 2133 Sodium 140.0 Potassium Chloride 103.0 Carbon Dioxide Anion Gap BUN Creatinine Est GFR ( Amer) Est GFR (Non-Af Amer) POC Glucose (mg/dL) 237 H Random Glucose Hemoglobin A1c Calcium Total Bilirubin AST ALT Alkaline Phosphatase Total Creatine Kinase Troponin I NT-Pro-B Natriuret Pep Total Protein Albumin Globulin Albumin/Globulin Ratio Triglycerides Cholesterol LDL Cholesterol Direct HDL Cholesterol Arterial Blood Potassium 4.6 Urine Color Yellow Urine Appearance Clear Urine pH 6.5 Ur Specific [place] 1.020 Urine Protein 100 H Urine Glucose (UA) Negative Urine Ketones Negative Urine Blood Trace-intact H Urine Nitrate Negative Urine Bilirubin Negative Urine Urobilinogen 0.2 Ur Leukocyte Esterase Negative Urine RBC 1 - 3 H Urine WBC None Ur Epithelial Cells 0 - 2 Blood Type Antibody Screen BBK History Checked Assessment & Plan - Assessment and Plan (Free Text) Assessment: 67 year old female with significant past history (see PMH) who is admitted with altered mental status, new right sided facial droop,agonal breathing. Family ay bedside. Family met with Dr Sharma earlier and were updated of medical condition and prognosis. Family requesting to initiate comfort care. This request is in accordance with wishes stipulated in the patient's Living Will. Hospice services explained in detail. Family in agreement for hospice care. End of life counseling and psychosocial support provided Family in the process of signing on with [facility] when patient . Time spent with family in goals of care and end of life counseling, 60 minutes Plan: Goals of care End of life counseling Hospice Evaluation Ativan 1 mg as needed for seizure. Morphine as needed for pain
[2018-05-11] MEDS: Sodium Chloride 0.9% 1,000 ML IV SCH (12:15)
--- NOTE | 2018-05-11 12:48 | CP.PCM.PRO ---
Pronouncement of Note - Clinical Findings Physical Exam: No Response Verbal/Painful Stimuli, Absent Peripheral Puls es{Carotid & Femoral}, Absent Heart & Breath Sounds, No Pupillary Light Reflex, No Corneal Reflex, Pupils Fixed & Dilated, Absence of Vital Signs - Pronouncement Time Time of Pronouncement of : 12:45 - Notifications Pronouncement Notifications: Family Notified, [place] Notified - [place] [id number]
--- NOTE | 2018-05-11 14:16 | CP.PCM.HP ---
<Robin Corrales - Last Filed: 05/11/18 14:09> History of Present Illness - History of Present Illness History of Present Illness: H&P note for Dr. Sharma: 67-year-old female with past medical history of CIDP, diabetes type 2, hyperlipidemia, breast cancer with lumpectomy presented to the ED with increased weakness and lethargy. Patient was just got back from being in rehab 1 week ago and has been progressively more weak in the past few days. Patient has been having advancement of her CIDP and has been treated 3 times with IVIG. In the ED patient had neurological deficits and was initially going to receive TPA however her symptoms improved. Patient went for a CT of the head and the daughter recognized that she developed a right-sided facial droop. At this time TPA was not administered. Patient's family along with patient's POA were reportedly present at bedside and as per the patient's wishes she is a DNR DNI. Extensive discussions were placed between the ICU team and the patient's family at this time and the family preferred the patient have comfort measures. 12 point ROS unobtainable due to mental status PMH: As stated above PSH: Rotator Cuff Surgery x 2 , GUY, B/L Carpal Tunnel Surgery, Right Breast Lumpectomy, Multiple Disc Herniation Repairs Family History: denies Social History: denies any tobacco, alcohol or illicit drug abuse Allergies: NKA Present on Admission - Present on Admission Any Indicators Present on Admission: No Review of Systems - Review of Systems All systems: reviewed and no additional remarkable complaints except (HPI) Past Patient History - Infectious Disease Hx of Infectious Diseases: None - Past Social History Smoking Status: Never Smoked - CARDIAC Hx Cardiac Disorders: No - PULMONARY Hx Asthma: Yes Hx Chronic Obstructive Pulmonary Disease (COPD): Yes Hx Emphysema: Yes - NEUROLOGICAL Hx Neurological Disorder: No - HEENT Hx HEENT Problems: No - RENAL Hx Chronic Kidney Disease: No - ENDOCRINE/METABOLIC Hx Endocrine Disorders: Yes Hx Diabetes Mellitus Type 1: Yes - HEMATOLOGICAL/ONCOLOGICAL Hx Blood Disorders: Yes Hx Cancer: Yes (breast ca) - INTEGUMENTARY Hx Dermatological Problems: No - MUSCULOSKELETAL/RHEUMATOLOGICAL Hx Falls: Yes Other/Comment: BILATER TORN SHOULDER ROTATOR CUFFS, WITH SURGERY, AND RETORN. 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 - GASTROINTESTINAL Hx Gastrointestinal Disorders: No - GENITOURINARY/GYNECOLOGICAL Hx Genitourinary Disorders: No - PSYCHIATRIC Hx Psychophysiologic Disorder: No Hx Substance Use: No - SURGICAL HISTORY Hx Hysterectomy: Yes Hx Orthopedic Surgery: Yes - ANESTHESIA Hx Anesthesia: Yes Meds Allergies/Adverse Reactions: Allergies Allergy/AdvReac Type Severity Reaction Status Date / Time No Known Allergies Allergy Verified 03/30/18 15:38 Physical Exam - Constitutional Appears: Chronically Ill - Head Exam Head Exam: ATRAUMATIC, NORMOCEPHALIC - Eye Exam Eye Exam: PERRL - ENT Exam ENT Exam: Mucous Membranes Moist - Respiratory Exam Respiratory Exam: Clear to Auscultation Bilateral. absent: Rales, Rhonchi, Wheezes - Cardiovascular Exam Cardiovascular Exam: REGULAR RHYTHM, RRR, +S1, +S2 - GI/Abdominal Exam GI & Abdominal Exam: Normal Bowel Sounds, Soft. absent: Tenderness - Extremities Exam Extremities exam: Positive for: pedal edema (1+ b/l). Negative for: calf tenderness - Neurological Exam Neurological exam: Altered, CN II-XII Intact - Skin Skin Exam: Dry, Normal Color, Warm Results - Vital Signs Recent Vital Signs: Last Vital Signs Temp 97.8 F 05/11/18 10:04 Pulse 95 H 05/11/18 10:04 Resp 16 05/11/18 10:04 BP 103/60 05/11/18 10:04 Pulse Ox 96 05/11/18 10:04 - Labs Result Diagrams: 05/10/18 16:05 05/10/18 16:05 Labs: Laboratory Results - last 24 hr 05/10/18 05/10/18 05/10/18 16:05 16:05 16:05 WBC 13.3 H D RBC 5.12 Hgb 14.6 Hct 45.0 MCV 87.9 D MCH 28.5 MCHC 32.4 RDW 13.9 Plt Count 258 MPV 10.2 Neut % (Auto) 84.7 H Lymph % (Auto) 7.6 L Barnes % (Auto) 7.7 H Eos % (Auto) 0.0 L Baso % (Auto) 0.0 Lymph # (Auto) 1.0 L Barnes # (Auto) 1.0 H Eos # (Auto) 0.0 Baso # (Auto) 0.00 Absolute Neuts (auto) 11.27 H PT 12.0 INR 1.08 APTT 28.5 pCO2 pO2 HCO3 ABG pH ABG Total CO2 ABG O2 Saturation ABG Base Excess ABG Potassium Glucose Lactate FiO2 Crit Value Called To Crit Value Called By Blood Gas Notified Time Sodium 137 Potassium 5.0 Chloride 97 L Carbon Dioxide 33 Anion Gap 12 BUN 33 H Creatinine 0.7 Est GFR ( Amer) > 60 Est GFR (Non-Af Amer) > 60 POC Glucose (mg/dL) Random Glucose 194 H Hemoglobin A1c Calcium 10.0 Total Bilirubin 0.5 AST 33 ALT 22 Alkaline Phosphatase 88 Total Creatine Kinase Troponin I 0.16 H* D NT-Pro-B Natriuret Pep 1710 H Total Protein 8.0 Albumin 4.4 Globulin 3.7 Albumin/Globulin Ratio 1.2 Triglycerides 122 Cholesterol 130 LDL Cholesterol Direct 48 HDL Cholesterol 56 Arterial Blood Potassium Urine Color Urine Appearance Urine pH Ur Specific [place] Urine Protein Urine Glucose (UA) Urine Ketones Urine Blood Urine Nitrate Urine Bilirubin Urine Urobilinogen Ur Leukocyte Esterase Urine RBC Urine WBC Ur Epithelial Cells Blood Type Antibody Screen BBK History Checked 05/10/18 05/10/18 05/10/18 16:05 16:05 18:00 WBC RBC Hgb Hct MCV MCH MCHC RDW Plt Count MPV Neut % (Auto) Lymph % (Auto) Barnes % (Auto) Eos % (Auto) Baso % (Auto) Lymph # (Auto) Barnes # (Auto) Eos # (Auto) Baso # (Auto) Absolute Neuts (auto) PT INR APTT pCO2 pO2 HCO3 ABG pH ABG Total CO2 ABG O2 Saturation ABG Base Excess ABG Potassium Glucose Lactate FiO2 Crit Value Called To Crit Value Called By Blood Gas Notified Time Sodium Potassium Chloride Carbon Dioxide Anion Gap BUN Creatinine Est GFR ( Amer) Est GFR (Non-Af Amer) POC Glucose (mg/dL) Random Glucose Hemoglobin A1c 7.5 H Calcium Total Bilirubin AST ALT Alkaline Phosphatase Total Creatine Kinase 43 Troponin I NT-Pro-B Natriuret Pep Total Protein Albumin Globulin Albumin/Globulin Ratio Triglycerides Cholesterol LDL Cholesterol Direct HDL Cholesterol Arterial Blood Potassium Urine Color Urine Appearance Urine pH Ur Specific [place] Urine Protein Urine Glucose (UA) Urine Ketones Urine Blood Urine Nitrate Urine Bilirubin Urine Urobilinogen Ur Leukocyte Esterase Urine RBC Urine WBC Ur Epithelial Cells Blood Type O POSITIVE Antibody Screen Negative BBK History Checked Patient has bt 05/10/18 05/10/18 05/10/18 18:48 21:04 21:25 WBC RBC Hgb Hct MCV MCH MCHC RDW Plt Count MPV Neut % (Auto) Lymph % (Auto) Barnes % (Auto) Eos % (Auto) Baso % (Auto) Lymph # (Auto) Barnes # (Auto) Eos # (Auto) Baso # (Auto) Absolute Neuts (auto) PT INR APTT pCO2 146 H* pO2 148.0 H HCO3 35.2 H ABG pH 6.99 L* ABG Total CO2 39.7 H ABG O2 Saturation 99.6 H ABG Base Excess -0.6 ABG Potassium 4.6 Glucose 251 H Lactate 0.5 L FiO2 100.0 Crit Value Called To Md han Crit Value Called By Robert Blood Gas Notified Time 2133 Sodium 140.0 Potassium Chloride 103.0 Carbon Dioxide Anion Gap BUN Creatinine Est GFR ( Amer) Est GFR (Non-Af Amer) POC Glucose (mg/dL) 237 H Random Glucose Hemoglobin A1c Calcium Total Bilirubin AST ALT Alkaline Phosphatase Total Creatine Kinase Troponin I NT-Pro-B Natriuret Pep Total Protein Albumin Globulin Albumin/Globulin Ratio Triglycerides Cholesterol LDL Cholesterol Direct HDL Cholesterol Arterial Blood Potassium 4.6 Urine Color Yellow Urine Appearance Clear Urine pH 6.5 Ur Specific [place] 1.020 Urine Protein 100 H Urine Glucose (UA) Negative Urine Ketones Negative Urine Blood Trace-intact H Urine Nitrate Negative Urine Bilirubin Negative Urine Urobilinogen 0.2 Ur Leukocyte Esterase Negative Urine RBC 1 - 3 H Urine WBC None Ur Epithelial Cells 0 - 2 Blood Type Antibody Screen BBK History Checked Assessment & Plan - Assessment and Plan (Free Text) Assessment: 1. Altered mental status secondary to possible CVA 2. Hypercapnic respiratory failure 3. Elevated troponin possibly secondary to an STEMI M2 4. CIDP 5. Diabetes type 2 6. Hyperlipidemia Initially urinalysis was performed and was negative. Chest x-ray showed bilateral pleural effusions with no acute infiltrate. EKG showed sinus tachycardia with inferior and anterior infarct age undetermined. Patient's f amily requested the patient is DNR DNI and be kept in comfort measures. Patient therefore was started on Tylenol. Patient was given duo nebs for any shortness of breath. Patient was given Dilaudid, morphine, and Ativan for comfort measures. Patient was also started on scopolamine. Continue with fluids of NS@ 100. Palliative care was consulted for recommendations. Continue to monitor for any changes. Will discuss further with the family regarding goals of care. Case and plan was reviewed and discussed with Dr. Sharma. <Khurram Sharma S - Last Filed: 05/11/18 17:20> Results - Vital Signs Recent Vital Signs: Last Vital Signs Temp 97.8 F 05/11/18 10:04 Pulse 95 H 05/11/18 10:04 Resp 16 05/11/18 10:04 BP 103/60 05/11/18 10:04 Pulse Ox 96 05/11/18 10:04 - Labs Result Diagrams: 05/10/18 16:05 05/10/18 16:05 Labs: Laboratory Results - last 24 hr 05/10/18 05/10/18 05/10/18 16:05 16:05 16:05 pCO2 pO2 HCO3 ABG pH ABG Total CO2 ABG O2 Saturation ABG Base Excess ABG Potassium Sodium Chloride Glucose Lactate FiO2 Crit Value Called To Crit Value Called By Blood Gas Notified Time POC Glucose (mg/dL) Hemoglobin A1c 7.5 H Total Creatine Kinase 43 Troponin I 0.16 H* D NT-Pro-B Natriuret Pep 1710 H Arterial Blood Potassium Urine Color Urine Appearance Urine pH Ur Specific [place] Urine Protein Urine Glucose (UA) Urine Ketones Urine Blood Urine Nitrate Urine Bilirubin Urine Urobilinogen Ur Leukocyte Esterase Urine RBC Urine WBC Ur Epithelial Cells Blood Type Antibody Screen BBK History Checked 05/10/18 05/10/18 05/10/18 18:00 18:48 21:04 pCO2 pO2 HCO3 ABG pH ABG Total CO2 ABG O2 Saturation ABG Base Excess ABG Potassium Sodium Chloride Glucose Lactate FiO2 Crit Value Called To Crit Value Called By Blood Gas Notified Time POC Glucose (mg/dL) 237 H Hemoglobin A1c Total Creatine Kinase Troponin I NT-Pro-B Natriuret Pep Arterial Blood Potassium Urine Color Yellow Urine Appearance Clear Urine pH 6.5 Ur Specific [place] 1.020 Urine Protein 100 H Urine Glucose (UA) Negative Urine Ketones Negative Urine Blood Trace-intact H Urine Nitrate Negative Urine Bilirubin Negative Urine Urobilinogen 0.2 Ur Leukocyte Esterase Negative Urine RBC 1 - 3 H Urine WBC None Ur Epithelial Cells 0 - 2 Blood Type O POSITIVE Antibody Screen Negative BBK History Checked Patient has bt 05/10/18 21:25 pCO2 146 H* pO2 148.0 H HCO3 35.2 H ABG pH 6.99 L* ABG Total CO2 39.7 H ABG O2 Saturation 99.6 H ABG Base Excess -0.6 ABG Potassium 4.6 Sodium 140.0 Chloride 103.0 Glucose 251 H Lactate 0.5 L FiO2 100.0 Crit Value Called To Md han Crit Value Called By Robert Blood Gas Notified Time 2133 POC Glucose (mg/dL) Hemoglobin A1c Total Creatine Kinase Troponin I NT-Pro-B Natriuret Pep Arterial Blood Potassium 4.6 Urine Color Urine Appearance Urine pH Ur Specific [place] Urine Protein Urine Glucose (UA) Urine Ketones Urine Blood Urine Nitrate Urine Bilirubin Urine Urobilinogen Ur Leukocyte Esterase Urine RBC Urine WBC Ur Epithelial Cells Blood Type Antibody Screen BBK History Checked Assessment & Plan - Assessment and Plan (Free Text) Assessment: Patient was seen and examined by me. I have reviewed the note of the medical record retrieval specialist and have gone over the plan of care. I agree with the note. I have reviewed the medications and the last labs. Pt with probable CVA, she did not get tpa. She had a decline in the ER. ICU evaluated the pt and I spoke to the resident. Pt was made comfort care. Spoke to daughter at bedside this morning. Poor prognosis. Spoke to Muna from Palliative care and she saw the pt. Pt was recently discharged from [facility]. She also had an elevated trop and may have early [place]. She is on Morphine for pain and symptom control. She is DNR/DNI.
--- NOTE | 2018-05-11 14:27 | CP.PCM.DIS ---
<Robin Corrales - Last Filed: 05/11/18 14:24> Provider - Provider Date of Admission: 05/10/18 18:34 Attending physician: Khurram Sharma MD Consults: 05/10/18 16:14 Stroke Team Consult Stat Comment: Consulting Provider: Neurohospitalist Consulting Physician: NEUROHOSP Neurohospitalist for Consult: Francois Rae Neurohospitalist for Consult: Michele Nava Reason for Consult: right facial droop 05/10/18 23:23 Palliative Care Consult Routine Comment: Consulting Provider: Deysi Humphrey Physician Instructions: Comfort Care; Advanced directive with DNR/DNI Reason For Exam: Hospice Evaluation 05/11/18 10:06 Hospice [Case Management Referral] Routine Comment: Physician Instructions: Reason For Exam: please eval for hospice Reason for Referral: Hospice Eval Time Spent in preparation of Discharge (in minutes): 45 Hospital Course - Lab Results Lab Results: Most Recent Lab Values WBC 13.3 10^3/uL (4.5-11.0) H D 05/10/18 16:05 RBC 5.12 10^6/uL (3.5-6.1) 05/10/18 16:05 Hgb 14.6 g/dL (12.0-16.0) 05/10/18 16:05 Hct 45.0 % (36.0-48.0) 05/10/18 16:05 MCV 87.9 fl (80.0-105.0) D 05/10/18 16:05 MCH 28.5 pg (25.0-35.0) 05/10/18 16:05 MCHC 32.4 g/dl (31.0-37.0) 05/10/18 16:05 RDW 13.9 % (11.5-14.5) 05/10/18 16:05 Plt Count 258 10^3/uL (120.0-450.0) 05/10/18 16:05 MPV 10.2 fl (7.0-11.0) 05/10/18 16:05 Neut % (Auto) 84.7 % (50.0-68.0) H 05/10/18 16:05 Lymph % (Auto) 7.6 % (22.0-35.0) L 05/10/18 16:05 [place] % (Auto) 7.7 % (1.0-6.0) H 05/10/18 16:05 Eos % (Auto) 0.0 % (1.5-5.0) L 05/10/18 16:05 Baso % (Auto) 0.0 % (0.0-3.0) 05/10/18 16:05 Lymph # (Auto) 1.0 (1.2-3.4) L 05/10/18 16:05 [place] # (Auto) 1.0 (0.1-0.6) H 05/10/18 16:05 Eos # (Auto) 0.0 (0.0-0.7) 05/10/18 16:05 Baso # (Auto) 0.00 K/mm3 (0.0-2.0) 05/10/18 16:05 Absolute Neuts (auto) 11.27 (1.4-6.5) H 05/10/18 16:05 PT 12.0 SECONDS (9.4-12.5) 05/10/18 16:05 INR 1.08 05/10/18 16:05 APTT 28.5 Seconds (26.9-38.3) 05/10/18 16:05 pCO2 146 mm/Hg (35-45) H* 05/10/18 21:25 pO2 148.0 mm/Hg (80-100) H 05/10/18 21:25 HCO3 35.2 mmol/L (21-28) H 05/10/18 21:25 ABG pH 6.99 (7.35-7.45) L* 05/10/18 21:25 ABG Total CO2 39.7 mmol.L (22-28) H 05/10/18 21:25 ABG O2 Saturation 99.6 % (95-98) H 05/10/18 21:25 ABG Base Excess -0.6 mmol/L (-2.0-3.0) 05/10/18 21:25 ABG Potassium 4.6 mmol/L (3.6-5.2) 05/10/18 21:25 Sodium 140.0 mmol/L (132-148) 05/10/18 21:25 Chloride 103.0 mmol/L (98-107) 05/10/18 21:25 Glucose 251 mg/dl (65-105) H 05/10/18 21:25 Lactate 0.5 mmol/L (0.7-2.1) L 05/10/18 21:25 FiO2 100.0 % 05/10/18 21:25 Crit Value Called To Md han 05/10/18 21:25 Crit Value Called By Robert 05/10/18 21:25 Blood Gas Notified Time 213305/10/18 21:25 Sodium 137 mmol/L (132-148) 05/10/18 16:05 Potassium 5.0 mmol/L (3.6-5.0) 05/10/18 16:05 Chloride 97 mmol/L (98-107) L 05/10/18 16:05 Carbon Dioxide 33 mmol/L (21-33) 05/10/18 16:05 Anion Gap 12 (10-20) 05/10/18 16:05 BUN 33 mg/dL (7-21) H 05/10/18 16:05 Creatinine 0.7 mg/dl (0.7-1.2) 05/10/18 16:05 Est GFR ( Amer) > 60 05/10/18 16:05 Est GFR (Non-Af Amer) > 60 05/10/18 16:05 POC Glucose (mg/dL) 237 mg/dL (65-110) H 05/10/18 21:04 Random Glucose 194 mg/dL (70-110) H 05/10/18 16:05 Hemoglobin A1c 7.5 % (4.2-6.5) H 05/10/18 16:05 Calcium 10.0 mg/dL (8.4-10.5) 05/10/18 16:05 Total Bilirubin 0.5 mg/dL (0.2-1.3) 05/10/18 16:05 AST 33 U/L (14-36) 05/10/18 16:05 ALT 22 U/L (7-56) 05/10/18 16:05 Alkaline Phosphatase 88 U/L (38-126) 05/10/18 16:05 Total Creatine Kinase 43 U/L (35-230) 05/10/18 16:05 Troponin I 0.16 ng/mL H* D 05/10/18 16:05 NT-Pro-B Natriuret Pep 1710 pg/mL (0-450) H 05/10/18 16:05 Total Protein 8.0 g/dL (5.8-8.3) 05/10/18 16:05 Albumin 4.4 g/dL (3.0-4.8) 05/10/18 16:05 Globulin 3.7 gm/dL 05/10/18 16:05 Albumin/Globulin Ratio 1.2 (1.1-1.8) 05/10/18 16:05 Triglycerides 122 mg/dL (35-160) 05/10/18 16:05 Cholesterol 130 mg/dL (130-200) 05/10/18 16:05 LDL Cholesterol Direct 48 mg/dL (0-129) 05/10/18 16:05 HDL Cholesterol 56 mg/dL (29-60) 05/10/18 16:05 Arterial Blood Potassium 4.6 mmol/L (3.6-5.2) 05/10/18 21:25 Urine Color Yellow (YELLOW) 05/10/18 18:48 Urine Appearance Clear (CLEAR) 05/10/18 18:48 Urine pH 6.5 (4.7-8.0) 05/10/18 18:48 Ur Specific [place] 1.020 (1.005-1.035) 05/10/18 18:48 Urine Protein 100 mg/dL (<30 mg/dL) H 05/10/18 18:48 Urine Glucose (UA) Negative mg/dL (NEGATIVE) 05/10/18 18:48 Urine Ketones Negative mg/dL (NEGATIVE) 05/10/18 18:48 Urine Blood Trace-intact (NEGATIVE) H 05/10/18 18:48 Urine Nitrate Negative (NEGATIVE) 05/10/18 18:48 Urine Bilirubin Negative (NEGATIVE) 05/10/18 18:48 Urine Urobilinogen 0.2 E.U./dL (<1 E.U./dL) 05/10/18 18:48 Ur Leukocyte Esterase Negative [place]astasia/uL (NEGATIVE) 05/10/18 18:48 Urine RBC 1 - 3 /hpf (0-2) H 05/10/18 18:48 Urine WBC None /hpf (0-6) 05/10/18 18:48 Ur Epithelial Cells 0 - 2 /hpf (0-5) 05/10/18 18:48 Blood Type O POSITIVE 02/13/19 18:00 Antibody Screen Negative 05/10/18 18:00 BBK History Checked Patient has bt 05/10/18 18:00 - Hospital Course Hospital Course: 67-year-old female with past medical history of CIDP, diabetes type 2, hyperlipidemia, breast cancer with lumpectomy presented with few days of increasing weakness and lethargy. In the ED basic lab work was performed. Urinalysis was done and was negative. Chest x-ray showed bilateral pleural effusions with no acute infiltrate. EKG showed sinus tachycardia with inferior and anterior infarct age undetermined. At this time ICU was consulted for change in neuro status and TPA was considered however it was not given. Following CT head and the patient's daughter noticed a right-sided facial droop. Patient was out of the window for TPA. Patient's family stated that the patient wished to be DNR/DNI. Patient family along with ICU team had an extensive discussion and preferred for comfort measures. At this time palliative care was consulted for recommendations. Patient was started on duo nebs, Tylenol, Dilaudid, morphine, and Ativan for comfort measures. Hospice care was considered by the family. Unfortunately the patient passed later on in the day. 1. Altered mental status secondary to possible CVA 2. Hypercapnic respiratory failure 3. Elevated troponin possibly secondary to an STEMI M2 4. CIDP 5. Diabetes type 2 6. Hyperlipidemia Discharge Exam - Head Exam Additional comments: Patient therefore unable to perform physical exam Discharge Plan - Follow Up Plan Condition: GOOD Disposition: WITH WITHOUT AUTOPSY <Khurram Sharma - Last Filed: 05/11/18 17:17> Provider - Provider Date of Admission: 05/10/18 18:34 Attending physician: Khurram Sharma MD Consults: 05/10/18 16:14 Stroke Team Consult Stat Comment: Consulting Provider: Neurohospitalist Consulting Physician: NEUROHOSP Neurohospitalist for Consult: Francois Rae Neurohospitalist for Consult: Michele Nava Reason for Consult: right facial droop 05/10/18 23:23 Palliative Care Consult Routine Comment: Consulting Provider: Deysi Humphrey Physician Instructions: Comfort Care; Advanced directive with DNR/DNI Reason For Exam: Hospice Evaluation 05/11/18 10:06 Hospice [Case Management Referral] Routine Comment: Physician Instructions: Reason For Exam: please eval for hospice Reason for Referral: Hospice Evtx Hospital Course - Lab Results Lab Results: Most Recent Lab Values WBC 13.3 10^3/uL (4.5-11.0) H D 05/10/18 16:05 RBC 5.12 10^6/uL (3.5-6.1) 05/10/18 16:05 Hgb 14.6 g/dL (12.0-16.0) 05/10/18 16:05 Hct 45.0 % (36.0-48.0) 05/10/18 16:05 MCV 87.9 fl (80.0-105.0) D 05/10/18 16:05 MCH 28.5 pg (25.0-35.0) 05/10/18 16:05 MCHC 32.4 g/dl (31.0-37.0) 05/10/18 16:05 RDW 13.9 % (11.5-14.5) 05/10/18 16:05 Plt Count 258 10^3/uL (120.0-450.0) 05/10/18 16:05 MPV 10.2 fl (7.0-11.0) 05/10/18 16:05 Neut % (Auto) 84.7 % (50.0-68.0) H 05/10/18 16:05 Lymph % (Auto) 7.6 % (22.0-35.0) L 05/10/18 16:05 [place] % (Auto) 7.7 % (1.0-6.0) H 05/10/18 16:05 Eos % (Auto) 0.0 % (1.5-5.0) L 05/10/18 16:05 Baso % (Auto) 0.0 % (0.0-3.0) 05/10/18 16:05 Lymph # (Auto) 1.0 (1.2-3.4) L 05/10/18 16:05 [place] # (Auto) 1.0 (0.1-0.6) H 05/10/18 16:05 Eos # (Auto) 0.0 (0.0-0.7) 05/10/18 16:05 Baso # (Auto) 0.00 K/mm3 (0.0-2.0) 05/10/18 16:05 Absolute Neuts (auto) 11.27 (1.4-6.5) H 05/10/18 16:05 PT 12.0 SECONDS (9.4-12.5) 05/10/18 16:05 INR 1.08 05/10/18 16:05 APTT 28.5 Seconds (26.9-38.3) 05/10/18 16:05 pCO2 146 mm/Hg (35-45) H* 05/10/18 21:25 pO2 148.0 mm/Hg (80-100) H 05/10/18 21:25 HCO3 35.2 mmol/L (21-28) H 05/10/18 21:25 ABG pH 6.99 (7.35-7.45) L* 05/10/18 21:25 ABG Total CO2 39.7 mmol.L (22-28) H 05/10/18 21:25 ABG O2 Saturation 99.6 % (95-98) H 05/10/18 21:25 ABG Base Excess -0.6 mmol/L (-2.0-3.0) 05/10/18 21:25 ABG Potassium 4.6 mmol/L (3.6-5.2) 05/10/18 21:25 Sodium 140.0 mmol/L (132-148) 05/10/18 21:25 Chloride 103.0 mmol/L (98-107) 05/10/18 21:25 Glucose 251 mg/dl (65-105) H 05/10/18 21:25 Lactate 0.5 mmol/L (0.7-2.1) L 05/10/18 21:25 FiO2 100.0 % 05/10/18 21:25 Crit Value Called To Md han 05/10/18 21:25 Crit Value Called By Robert 05/10/18 21:25 Blood Gas Notified Time 213305/10/18 21:25 Sodium 137 mmol/L (132-148) 05/10/18 16:05 Potassium 5.0 mmol/L (3.6-5.0) 05/10/18 16:05 Chloride 97 mmol/L (98-107) L 05/10/18 16:05 Carbon Dioxide 33 mmol/L (21-33) 05/10/18 16:05 Anion Gap 12 (10-20) 05/10/18 16:05 BUN 33 mg/dL (7-21) H 05/10/18 16:05 Creatinine 0.7 mg/dl (0.7-1.2) 05/10/18 16:05 Est GFR ( Amer) > 60 05/10/18 16:05 Est GFR (Non-Af Amer) > 60 05/10/18 16:05 POC Glucose (mg/dL) 237 mg/dL (65-110) H 05/10/18 21:04 Random Glucose 194 mg/dL (70-110) H 05/10/18 16:05 Hemoglobin A1c 7.5 % (4.2-6.5) H 05/10/18 16:05 Calcium 10.0 mg/dL (8.4-10.5) 05/10/18 16:05 Total Bilirubin 0.5 mg/dL (0.2-1.3) 05/10/18 16:05 AST 33 U/L (14-36) 05/10/18 16:05 ALT 22 U/L (7-56) 05/10/18 16:05 Alkaline Phosphatase 88 U/L (38-126) 05/10/18 16:05 Total Creatine Kinase 43 U/L (35-230) 05/10/18 16:05 Troponin I 0.16 ng/mL H* D 05/10/18 16:05 NT-Pro-B Natriuret Pep 1710 pg/mL (0-450) H 05/10/18 16:05 Total Protein 8.0 g/dL (5.8-8.3) 05/10/18 16:05 Albumin 4.4 g/dL (3.0-4.8) 05/10/18 16:05 Globulin 3.7 gm/dL 05/10/18 16:05 Albumin/Globulin Ratio 1.2 (1.1-1.8) 05/10/18 16:05 Triglycerides 122 mg/dL (35-160) 05/10/18 16:05 Cholesterol 130 mg/dL (130-200) 05/10/18 16:05 LDL Cholesterol Direct 48 mg/dL (0-129) 05/10/18 16:05 HDL Cholesterol 56 mg/dL (29-60) 05/10/18 16:05 Arterial Blood Potassium 4.6 mmol/L (3.6-5.2) 05/10/18 21:25 Urine Color Yellow (YELLOW) 05/10/18 18:48 Urine Appearance Clear (CLEAR) 05/10/18 18:48 Urine pH 6.5 (4.7-8.0) 05/10/18 18:48 Ur Specific [place] 1.020 (1.005-1.035) 05/10/18 18:48 Urine Protein 100 mg/dL (<30 mg/dL) H 05/10/18 18:48 Urine Glucose (UA) Negative mg/dL (NEGATIVE) 05/10/18 18:48 Urine Ketones Negative mg/dL (NEGATIVE) 05/10/18 18:48 Urine Blood Trace-intact (NEGATIVE) H 05/10/18 18:48 Urine Nitrate Negative (NEGATIVE) 05/10/18 18:48 Urine Bilirubin Negative (NEGATIVE) 05/10/18 18:48 Urine Urobilinogen 0.2 E.U./dL (<1 E.U./dL) 05/10/18 18:48 Ur Leukocyte Esterase Negative [place]/uL (NEGATIVE) 05/10/18 18:48 Urine RBC 1 - 3 /hpf (0-2) H 05/10/18 18:48 Urine WBC None /hpf (0-6) 05/10/18 18:48 Ur Epithelial Cells 0 - 2 /hpf (0-5) 05/10/18 18:48 Blood Type O POSITIVE 05/10/18 18:00 Antibody Screen Negative 05/10/18 18:00 BBK History Checked Patient has bt 05/10/18 18:00 - Hospital Course Hospital Course: see H and P
--- NOTE | 2018-05-11 15:21 | CARD ---
APPROVED REPORT Date of service: 05/10/2018 EKG Measurement Heart [id number] <Conclusion> Normal sinus rhythm Minimal voltage criteria for LVH, may be normal variant Inferior infarct, age undetermined Anterolateral infarct, age undetermined Abnormal ECG
== END 2018-05-11 11:45 | DRG 64 ==
LOC: ED 15:55 → ERH 18:34 → 5RNO 05-11 01:34
PROVIDERS: ADMIT Internal Medicine Nephrology; ATTEND Internal Medicine Nephrology
DX: I63.9 Cerebral infarction, unspecified (principal); R40.20 Unspecified coma; J96.92 Respiratory failure, unspecified with hypercapnia; I21.A1 Myocardial infarction type 2; G61.81 Chronic inflammatory demyelinating polyneuritis; R29.810 Facial weakness; Z66 Do not resuscitate; E11.42 Type 2 diabetes mellitus with diabetic polyneuropathy; E78.5 Hyperlipidemia, unspecified; J43.9 Emphysema, unspecified; Z85.3 Personal history of malignant neoplasm of breast; Z79.82 Long term (current) use of aspirin; Z79.84 Long term (current) use of oral hypoglycemic drugs